=== PATIENT | male | born 1985 | race Caucasian/White ===

== ENCOUNTER 2020-05-29 17:39 | Emergency (ER) | payer MEDICAID, SELFPAY ==
[2020-05-29 17:40] VITALS: BP 144/79; PULSE 77; RESP 19; TEMP 36.8; O2SAT 100; BMI 25.8
--- NOTE | 2020-05-29 17:54 | XR_ITS ---
PROCEDURE: XR KNEE LT 3V CLINICAL INDICATION: fall, ?patella dislocation COMPARISON: KNEE3L KNEE-3 VIEWS-LT from 11/08/2012 FINDINGS: Examination for evaluation of the patellar dislocation is limited in absence of the sunrise view. No fracture or dislocation. No lytic or blastic change. There is normal mineralization. The joint spaces are well-preserved. No significant degenerative/arthritic changes. No erosive changes evident. Likely a small joint effusion present as a suprapatellar soft tissue increased density. Other findings:Patellae seen at an appropriate height. IMPRESSION: 1. No demonstrated acute fracture or substantial dislocation. If there is continued clinical concern, sunrise view of the patella is recommended. Dictated by: Wendi Aragon 05/29/2020 18:11 Electronically signed by Wendi Aragon in [place] 05/29/2020 18:11
--- NOTE | 2020-05-29 17:55 | HMH.EDGENADL ---
ED Disposition Clinical Impression: Patellar dislocation Qualifiers: Encounter type: initial encounter Laterality: left Qualified Code(s): S83.005A - Unspecified dislocation of left patella, initial encounter Left knee sprain Qualifiers: Encounter type: initial encounter Involved ligament of knee: other ligament Qualified Code(s): S83.8X2A - Sprain of other specified parts of left knee, initial encounter Disposition: Home, Self-Care Condition on Discharge: Good Instructions: DI for Knee Sprain, DI for Patellar Dislocation Additional Instructions: You have been evaluated for a patellar dislocation. Please wear immobilizer and use crutches. Follow-up with your primary care doctor and orthopedics in clinic. Return to the emergency department if you have any new or worsening pain, numbness, tingling in your foot. Referrals: PCP,No [Primary Care Provider] - Time of Disposition: 18:18 - Critical Care Critical Care Time: No Attestation: On 05/29/20, the high probability of a clinically significant, sudden or life threatening deterioration of the following system(s) required my full and direct attention, intervention and personal management. The time I documented below is in addition to time spent performing reported procedures but includes the following listed in this critical care notation. Medical Decision Making - Medical Records Medical records reviewed: Yes: I reviewed the patient's medical records. - Jose Inquiry Pt receiving controlled substance: No Vital Signs: 05/29/20 17:40 Temperature 98.3 F Temperature Source Oral Pulse Rate [Left Radial] 77 Respiratory Rate 19 Blood Pressure [Right Arm] 144/79 H Blood Pressure Mean [Right Arm] 100 Blood Pressure Source [Right Arm] Automatic Cuff Blood Pressure Position [Right Arm] Sitting 02 Sat by Pulse Oximetry 100 Oxygen Delivery Method Room Air Medical Decision Narrative: In summary this is a 34-year-old male presenting to the emergency department with left knee pain. Patient is overall well-appearing on arrival. Differential diagnoses include patellar dislocation, now relocated. Concern for occult fracture. Story sounds inconsistent with knee dislocation. Doubt neurovascular compromise. Plan to obtain plain film x-rays of the left knee and reassess. X-rays generally unremarkable. No signs of fracture. Patient placed into a knee immobilizer. Given crutches. Recommended to follow-up with orthopedics in clinic. Overall improved and stable for discharge. General Adult HPI - General Chief complaint: Extremity Injury, Lower Stated complaint: AO [id number] @1630 L knee injury Time Seen by Provider: 05/29/20 17:55 Description of Symptoms (Recalled from ER Triage Doc. by RN): Patient slipped on wet water. Thinks his kneecap went to the side. Went back. Pain with walking - History of Present Illness HPI narrative: 34-year-old male presenting to the emergency department with left knee pain. Patient was walking on a slippery floor when he lost his balance. Fell to the ground. His patella was on the lateral aspect of his leg. He was able to move it back to the center. Continues to have pain on the medial aspect of his knee. Pain is worse with motion. He is able to extend his leg. Does not think that his actual knee joint is dislocated. Currently does not have any numbness or tingling in his foot. He has had knee surgery in the past, years ago. He was able to walk into the ER. - Related Data Home Medications Medication Instructions Recorded Confirmed Buprenorphine HCl/Naloxone HCl 1 each SL DAILY 12/02/18 12/02/18 [Suboxone 8 mg-2 mg Sl Film] Previous Rx's Medication Instructions Recorded Pantoprazole Sodium [Protonix 40mg 40 mg PO BID 30 Days #60 tab 12/02/18 tablet] Allergies Allergy/AdvReac Type Severity Reaction Status Date / Time No Known Allergies Allergy Verified 12/02/18 14:08 [facility] History - Hepatit
[2020-05-29 18:56] VITALS: BP 144/79; PULSE 77; RESP 18; TEMP 36.8; O2SAT 100
== END 2020-05-29 18:58 | disposition home or self-care (01) ==
PROVIDERS: Emergency Provider Emergency Medicine
DX: S83.005A Unspecified dislocation of left patella, initial encounter (principal); W01.0XXA Fall on same level from slipping, tripping and stumbling without subsequent striking against object, initial encounter; Y92.019 Unspecified place in single-family (private) house as the place of occurrence of the external cause
CPT/HCPCS: 29505; 73562; 99283

== ENCOUNTER → 2021-04-20 12:52 | Outpatient (CLI) | payer MEDICAID, SELFPAY ==
--- NOTE | 2021-04-20 12:53 | CA_ITS ---
APPROVED REPORT EXAM: Comprehensive 2D, Doppler, and color-flow Echocardiogram Construction Manager: Alicia Romero RVT Ht: 5 ft 8 in Wt: 149lbs BSA: 1.80 BP: 140/72 mmHg Indications: MURMUR,HEP C ,HX IV DRUG USE IN THE PAST 2D Dimensions LVOT 2.01 cm (M/F) 1.5-2.5 LA Volume 25.40 mL LA Volume Index 14.11 mL/m2 (M/F) 16-34 M-Mode Dimensions RVDd 2.47 cm (0.9-2.6) LA Diam 3.73 cm (1.9-4.0) LVDd 5.36 cm (3.5-5.7) Ao Diam 3.03 cm (2.0-3.7) LVDs 3.54 cm (3.5-5.7) IVSd 0.61 cm (0.6-1.1) PWd 0.64 cm (0.6-1.1) EF (Teich) 62.30% FS 34.00% EDV (Teich) 138.90 mL TAPSE 2.32 (<1.7) ESV (Teich) 52.30 mL LV Diastology E Decel Time 300.00 (160-240 msec) E/A Ratio 1.9 MED E' 11.60 (< 7 cm/sec) E'/MED E' Ratio 5.84 (>14) LAT E' 17.60 (<10 cm/sec) E/LAT E' Ratio 3.85 (>14) Aortic Valve AO Peak GR. 4.20 mmHg Mitral Valve MV E Max Bassem. 68.00 (40-130 cm/s) MV A Velocity 36.00 (40-130 cm/s) E/A Ratio 1.87 MV Decel. Time 300.00 (160-240 ms) MV PHT 88.00 ms Pulmonary Valve PV Peak Velocity 70.00 (50-150 cm/s) Tricuspid Valve TR P. Velocity 145.00 cm/s RAP Estimate 10.00 mmHg RVSP 18.40 mmHg Left Ventricle Left atrium is normal size, left ventricle is normal size, there is no concentric left ventricular hypertrophy, visually estimated ejection fraction 55% with no regional wall motion abnormality, diastolic parameters are within normal range. Right Ventricle Right atrium and right ventricle are normal size and contractility. Aortic Valve Aortic valve is grossly normal, there is no aortic stenosis or aortic insufficiency. Mitral Valve Mitral valve grossly normal, there is trace mitral regurgitation. Tricuspid Valve Tricuspid grossly normal, there is trace tricuspid regurgitation, tricuspid regurgitation jet velocity is inadequate for calculation of the right ventricular systolic pressure. Pulmonic Valve Pulmonic valve is poorly visualized. Great Vessels Aortic root is normal size. Pericardium No significant pericardial effusion noted. Conclusion 1. Normal left ventricular size, preserved left ventricular systolic function, visually estimated ejection fraction 55% with no regional wall motion abnormality, diastolic parameters are within normal range. 2. Trace mitral and tricuspid regurgitation. 3. No significant pericardial effusion noted. Electronically signed by : Aaron Hall, 04/20/2021 21:54:54
== END ==
PROVIDERS: PCP Emergency Medicine; Visit Provider Emergency Medicine
DX: R01.1 Cardiac murmur, unspecified (principal)
CPT/HCPCS: 93306

== ENCOUNTER → 2021-07-23 17:10 | Outpatient (CLI) | payer MEDICAID, SELFPAY ==
[2021-07-23 17:50] LABS: Basophils # 0.1 K/mm3 (0-0.2); Basophils % 0.5 % (0.1-2.0); Eosinophils # 0.2 K/mm3 (0.0-0.4); Eosinophils % 2.4 % (0.1-12.0); Hematocrit 39.7 % (42.0-52.0); Lymphocytes # 3.6 K/mm3 (0.7-4.5); Lymphocytes % 36.7 % (10-50); Mean Corpuscular HGB Conc 32.7 g/dL (31.8-35.4); Mean Corpuscular Hemoglobin 31.3 pg (27.0-31.2); Mean Corpuscular Volume 95.7 fl (80-94); Mean Platelet Volume 8.2 fl (7.4-10.4); Monocytes # 0.4 K/mm3 (0.1-1.0); Monocytes % 3.8 % (1.7-9.3); Neutrophils # 5.6 K/mm3 (1.8-7.8); Neutrophils % 56.7 % (37.0-80.0); Platelet Count 293 K/mm3 (142-424); Red Blood Count 4.15 M/mm3 (4.60-6.20); Red Cell Distribution Width 13.4 % (11.5-17.5); White Blood Count 9.8 K/mm3 (4.8-10.8)
[2021-07-23 18:13] LABS: Alanine Aminotransferase 17 U/L (12-78); Albumin Level 4.6 g/dl (3.5-5.0); Albumin/Globulin Ratio 1.8 (1.1-1.8); Alkaline Phosphatase 41 U/L (38-126); Anion Gap 14.7 mEq/L (5-15); Aspartate Amino Transferase 39 U/L (17-59); Bilirubin,Total 0.5 mg/dl (0.2-1.3); Blood Urea Nitrogen 13 mg/dl (9-20); Calcium 9.3 mg/dl (8.4-10.2); Carbon Dioxide 30 mmol/L (22.0-30.0); Chloride 101 mmol/L (98-107); Chol/HDL Ratio 3.6 (1-3.5); Cholesterol 217 mg/dl (140-200); Estimated Glomerular Filt Rate 128 ml/min (>60); GFR (African American) 154 ML/MIN (>60); Globulin 2.6 g/dL (1.3-3.2); Glucose 84 mg/dl (74-100); HDL Cholesterol 60 mg/dl (40-60); Potassium 3.7 mmoL/L (3.5-5.1); Sodium 142 mmol/L (136-145); Total Protein,Serum 7.2 g/dl (6.3-8.2); Triglycerides 151 mg/dl (30-150); VLDL Cholesterol 30 mg/dL (0-40)
[2021-07-23 18:24] LABS: Direct LDL Cholesterol 131.27 mg/dL (100-129)
[2021-07-23 18:30] LABS: 25-OH Vitamin D, Total 46.3 ng/mL (30-100); Free T4 (Free Thyroxine) 0.91 ng/dl (0.78-2.19)
[2021-07-23 18:44] LABS: Thyroid Stimulating Hormone 1.51 uIU/mL (0.465-4.68)
== END ==
PROVIDERS: Visit Provider Emergency Medicine
DX: M79.2 Neuralgia and neuritis, unspecified (principal); E55.9 Vitamin D deficiency, unspecified; Z79.899 Other long term (current) drug therapy
CPT/HCPCS: 80053; 80061; 82306; 84439; 84443; 85025

== ENCOUNTER → 2021-07-24 17:16 | Outpatient (CLI) | payer MEDICAID, SELFPAY ==
[2021-07-24 19:48] LABS: Amphetamine/Metha Screen,Urine Negative ng/ml (<1000)
[2021-07-24 19:49] LABS: Barbiturates Screen,Urine Negative ng/ml (<200); Benzodiazepines Screen,Urine Negative ng/ml (<200)
[2021-07-24 19:50] LABS: Cannabinoid Screen,Urine Positive ng/ml (<50)
[2021-07-24 19:52] LABS: Cocaine Screen,Urine Negative ng/ml (<300)
[2021-07-24 19:53] LABS: Methadone Screen,Urine Negative ng/ml (<300)
[2021-07-24 19:54] LABS: Phencyclidine Screen,Urine Negative ng/ml (<25)
[2021-07-24 20:06] LABS: Opiate Screen,Urine Negative ng/ml (<300)
== END ==
PROVIDERS: Visit Provider Emergency Medicine
DX: M79.2 Neuralgia and neuritis, unspecified (principal)
CPT/HCPCS: 80305

== ENCOUNTER → 2021-10-21 17:06 | Outpatient (CLI) | payer MEDICAID, SELFPAY ==
[2021-10-21 18:47] LABS: Amphetamine/Metha Screen,Urine Negative ng/ml (<1000); Barbiturates Screen,Urine Negative ng/ml (<200)
[2021-10-21 18:48] LABS: Benzodiazepines Screen,Urine Negative ng/ml (<200)
[2021-10-21 18:49] LABS: Cannabinoid Screen,Urine Negative ng/ml (<50); Cocaine Screen,Urine Negative ng/ml (<300)
[2021-10-21 18:50] LABS: Methadone Screen,Urine Negative ng/ml (<300); Opiate Screen,Urine Negative ng/ml (<300)
[2021-10-21 18:51] LABS: Phencyclidine Screen,Urine Negative ng/ml (<25)
== END ==
PROVIDERS: Visit Provider Emergency Medicine
DX: M79.2 Neuralgia and neuritis, unspecified (principal)
CPT/HCPCS: 80305

== ENCOUNTER 2022-01-05 18:41 | Emergency (ER) | payer MEDICAID, SELFPAY ==
[2022-01-05 19:30] VITALS: BP 131/71; PULSE 72; RESP 18; TEMP 36.9; O2SAT 100; BMI 25.2
--- NOTE | 2022-01-05 19:52 | HMH.EDUTC ---
[facility] [place] Disposition Clinical Impression: Superficial foreign body of right ring finger with infection Disposition: Home, Self-Care Condition on Discharge: Good Instructions: DI for Cellulitis -- Adult Additional Instructions: Apply warm wet compresses to the affected sites three or four times per day for 15 minutes as tolerated. Keep the hand elevated as much a time as possible to reduce this swelling as much as possibe. Take the antibiotics as directed. Follow up with your regular doctor. GO TO THE ER FOR ANY WORSENING SYMPTOMS OR CONCERNS Prescriptions: Sulfamethoxazole/Trimethoprim [Bactrim DS tablet] 1 each PO BID 10 Days #20 tab Transmission Status: Received by [facility] Mupirocin [Bactroban 2% Ointment 22gm tube] 1 applicatio TP TID 7 Days #1 gm Transmission Status: Received by [facility] cephALEXin [cephALEXin 500mg capsule] 500 mg PO Q6H 10 Days #40 cap Transmission Status: Received by [facility] Referrals: Johnathon Moreno MD [Primary Care Provider] - Time of Disposition: 20:56 Medical Decision Making - Medical Records Medical records reviewed: No: I reviewed the patient's medical records. - Jose Inquiry Pt receiving controlled substance: No Vital Signs: 01/05/22 19:30 01/05/22 21:02 Temperature 98.4 F 98.4 F Temperature Source Oral Oral Pulse Rate 72 Pulse Rate [Apical] 72 Respiratory Rate 18 16 Blood Pressure 131/70 Blood Pressure [Right Arm] 131/71 Blood Pressure Mean [Right Arm] 91 Blood Pressure Source [Right Arm] Automatic Cuff Blood Pressure Position [Right Arm] Sitting 02 Sat by Pulse Oximetry 100 Oxygen Delivery Method Room Air Room Air Orders (Tests/Meds): ED MEDICATIONS Discontinued Medications Generic Name Dose Route Start Last Admin Trade Name Freq PRN Reason Stop Dose Admin Ceftriaxone Sodium 1 gm 01/05/22 20:52 01/05/22 21:01 Ceftriaxone 1gm Vial IM 01/05/22 20:53 1 gm ONCE ONE Administration Lidocaine HCl 0 ml 01/05/22 20:52 01/05/22 21:01 Lidocaine 1% 5ml Pf Vial IM 01/05/22 20:53 2 ml ONCE ONE Administration ORDERS Category Date Time Status Hand XR left minimum 3 views [XR hand LT min 3V] Stat Exams 01/05/22 19:57 Taken - Radiology Data #1 Image(s): Hand Image Reviewed: Yes I reviewed the patient's radiology image, Yes I have reviewed radiologist's interpretation Preliminary Findings: Normal/NAD PROCEDURE INFORMATION: Exam: XR Left Hand Exam date and time: 01/05/2022 7:57 PM Age: 36 years old Clinical indication: Injury or trauma; Other: Splinter in left finger; Puncture; Middle finger TECHNIQUE: Imaging protocol: XR Left hand. Views: 3 or more views. COMPARISON: No relevant prior studies available. FINDINGS: Bones/joints: Normal. Soft tissues: There is no evidence of a radiopaque foreign body. IMPRESSION: Unremarkable left hand. [facility] [place] HPI - General Stated complaint: left hand splinter Time Seen by Provider: 01/05/22 20:00 Mode of Arrival: Ambulatory Source of Information: Patient Limitations: No Limitations Description of Symptoms (Recalled from Triage Doc. by RN): Per pt, he has had a splinter in his left ring finger since (12/31/21) and has not been able to get it out. States that it is now swollen and painful. Denies fever. HEENT Symptoms (Recalled from RN notes): No Resp Symptoms (Recalled from RN notes): No Skin Symptoms (Recalled from RN notes): Yes MS Symptoms (Recalled from RN notes): No Functional Status (Recalled from RN notes): na - History of Present Illness Provider Complaint: He states that he was hunting about 1 week ago when he got a thorn in his left ring finger. Since then he has not been able to get it out and his finger is swollen and painful. He is not a diabetic. - Related Data Home Medications Medication Instructions Recorded
--- NOTE | 2022-01-05 19:57 | XR_ITS ---
PROCEDURE INFORMATION: Exam: XR Left Hand Exam date and time: 01/05/2022 7:57 PM Age: 36 years old Clinical indication: Injury or trauma; Other: Splinter in left finger; Puncture; Middle finger TECHNIQUE: Imaging protocol: XR Left hand. Views: 3 or more views. COMPARISON: No relevant prior studies available. FINDINGS: Bones/joints: Normal. Soft tissues: There is no evidence of a radiopaque foreign body. IMPRESSION: Unremarkable left hand.
[2022-01-05 21:02] VITALS: BP 131/70; PULSE 72; RESP 16; TEMP 36.9; O2SAT 98
== END 2022-01-05 21:14 | disposition home or self-care (01) ==
PROVIDERS: Emergency Provider Nurse Practitioner Family; PCP Emergency Medicine
DX: S60.455A Superficial foreign body of left ring finger, initial encounter (principal); W45.8XXA Other foreign body or object entering through skin, initial encounter
CPT/HCPCS: 10120; 73130; 96372; 99283; J0696

== ENCOUNTER 2022-01-30 15:22 | Emergency (ER) | payer MEDICAID, SELFPAY ==
[2022-01-30 15:23] VITALS: BP 135/82; PULSE 77; RESP 16; TEMP 36.6; O2SAT 98; BMI 25.7
--- NOTE | 2022-01-30 15:31 | XR_ITS ---
PROCEDURE INFORMATION: Exam: XR Left Hand Exam date and time: 01/30/2022 3:30 PM Age: 36 years old Clinical indication: Pain; Finger(s); Left; Additional info: Foreign body in finger TECHNIQUE: Imaging protocol: XR Left hand. Views: 1 or 2 views. COMPARISON: CR XR HAND LT MIN 3V 01/05/2022 7:56 PM FINDINGS: Bones/joints: Normal. No acute fracture or dislocation. Soft tissues: Prominent swelling mid to distal 4th digit, at the level of the middle phalanx. No radiopaque foreign body. IMPRESSION: Prominent swelling mid to distal 4th digit. No radiopaque foreign body.
--- NOTE | 2022-01-30 16:01 | HMH.EDGENADL ---
ED Disposition Clinical Impression: Abscess Disposition: Home, Self-Care Condition on Discharge: Fair Instructions: DI for Laceration Repair Prescriptions: Sulfamethoxazole/Trimethoprim [Bactrim DS tablet] 1 each PO BID 5 Days #10 tab Transmission Status: Pending to [facility] Referrals: Johnathon Moreno MD [Primary Care Provider] - - Critical Care Critical Care Time: No Attestation: On 01/30/22, the high probability of a clinically significant, sudden or life threatening deterioration of the following system(s) required my full and direct attention, intervention and personal management. The time I documented below is in addition to time spent performing reported procedures but includes the following listed in this critical care notation. Medical Decision Making - Medical Records Medical records reviewed: Yes: I reviewed the patient's medical records. - Jose Inquiry Pt receiving controlled substance: No Jose was queried for this patient: No Vital Signs: 01/30/22 15:23 Temperature 98 F Temperature Source Oral Pulse Rate [Radial] 77 Respiratory Rate 16 Blood Pressure [Right Arm] 135/82 Blood Pressure Mean [Right Arm] 99 Blood Pressure Position [Right Arm] Sitting 02 Sat by Pulse Oximetry 98 Oxygen Delivery Method Room Air Medical Decision Narrative: Patient is a 36-year-old with past medical history of IV drug use on Suboxone presenting to the ED for wound. Patient is awake, alert, not in acute distress. Patient is here medically stable, afebrile. Patient's physical exam is remarkable for right middle digit with moderate swelling, erythema, fluctuance noted concerning for an abscess. X-rays performed to look for any radiopaque foreign bodies. None are noted. Ultrasound was performed which shows an abscess that is superficial in nature. This is drained. Patient is written for Bactrim. Patient is given strict return precautions and follow-up instructions. General Adult HPI - General Chief complaint: Wound/Laceration Stated complaint: inf splinter ring finger left hand Time Seen by Provider: 01/30/22 16:01 Mode of Arrival: Ambulatory Limitations: No Limitations Description of Symptoms (Recalled from ER Triage Doc. by RN): to ed per pvt car with c/o splinter lt ring finger for approx 3 weeks. +swelling, redness noted. - History of Present Illness HPI narrative: Patient is a 36-year-old male with past medical history of IV drug use on Suboxone presenting to the ED for a splinter. Patient states approximately 2 weeks ago he had a splinter on has right middle digit that ended up getting swollen. This was removed at the urgent care. At that time patient was placed on Keflex. Patient states that despite being on the antibiotics he continues to have swelling of his finger. He does not have any numbness, weakness. He is still able to have range of motion without any significant pain. He has not had any fevers or chills. He has prior history of MRSA with associated infections. Patient has been compliant with his Keflex. - Related Data Home Medications Medication Instructions Recorded Confirmed buprenorphine 8 mg-naloxone 2 mg 1.5 tab SUBLINGUAL DAILY tab 02/27/21 01/18/22 sublingual tablet Previous Rx's Medication Instructions Recorded Mupirocin [Bactroban 2% Ointment 1 applicatio TP TID 7 Days #1 gm 01/05/22 22gm tube] gabapentin 600 mg tablet 600 mg PO TID #90 tab 01/18/22 quetiapine 25 mg tablet 25 mg PO HS #30 tab 01/18/22 Sulfamethoxazole/Trimethoprim 1 each PO BID 5 Days #10 tab 01/30/22 [Bactrim DS tablet] Allergies Allergy/AdvReac Type Severity Reaction Status Date / Time No Known Allergies Allergy Verified 01/18/22 14:52 [facility] History - Hepatitis A Screen Drug use history?: No High risk sexual behaviors?: No History of sexually transmitted infection?: No Currently employed?: No Childcare worker?: No Do you have indoor plumbing?:
[2022-01-30 16:42] VITALS: BP 142/74; PULSE 78; RESP 16; TEMP 36.6; O2SAT 98
== END 2022-01-30 16:45 | disposition home or self-care (01) ==
PROVIDERS: Emergency Provider Emergency Medicine; PCP Emergency Medicine
DX: L02.512 Cutaneous abscess of left hand (principal); F17.290 Nicotine dependence, other tobacco product, uncomplicated; Z79.899 Other long term (current) drug therapy; Z82.49 Family history of ischemic heart disease and other diseases of the circulatory system; Z83.438 Family history of other disorder of lipoprotein metabolism and other lipidemia; Z83.3 Family history of diabetes mellitus; Z80.9 Family history of malignant neoplasm, unspecified; Z81.8 Family history of other mental and behavioral disorders; Z81.1 Family history of alcohol abuse and dependence; Z86.14 Personal history of Methicillin resistant Staphylococcus aureus infection; Z87.898 Personal history of other specified conditions; X58.XXXA Exposure to other specified factors, initial encounter
CPT/HCPCS: 26010; 73120; 99213; G0463

== ENCOUNTER 2023-05-21 19:57 | Emergency (ER) | payer MEDICAID, SELFPAY ==
[2023-05-21 20:00] VITALS: BP 155/91; PULSE 73; RESP 18; TEMP 36.7; O2SAT 99; BMI 26.6
--- NOTE | 2023-05-21 20:14 | HMH.EDGENADL ---
Discharge Plan Disposition Patient Disposition: Home, Self-Care Condition: Good Prescriptions Prescriptions: New cephalexin 500 mg capsule 500 mg PO BID 5 Days Qty: 10 0RF No Action buprenorphine-naloxone 8-2 mg tablet, sublingual 1.5 tab SUBLINGUAL DAILY lidocaine 5 % adhesive patch,medicated 1 patch topical DAILY Qty: 30 0RF Rx Instructions: leave on most painful area for up to 12 hrs diclofenac sodium 1 % gel 2 g topical QID Qty: 100 0RF Rx Instructions: apply to single elbow, wrist or hand; for hand includes palm/fingers/back of hand gabapentin 800 mg tablet 800 mg PO TID Qty: 90 2RF quetiapine 50 mg tablet 50 mg PO DAILY Qty: 90 0RF Referrals Follow up/Referrals: Johnathon Moreno MD [Primary Care Provider] - See instructions Activity Restrictions/Add. Instructions Additional Instructions/Restrictions: At this time it was felt you are safe to be discharged home. Please take your medication as prescribed. If new or worsening symptoms please not hesitate to return for continued evaluation. Clinical Impressions Clinical Impression: Penetrating trauma, Foreign body Instructions Patient Instructions: DI for Skin Abscess Discharge ED Provider: Bryson Jay General Adult HPI General Chief complaint: Skin/Abscess/Foreign Body Stated complaint: AO 1750 left leg inj Time Seen by Provider: 05/21/23 20:06 History of Present Illness HPI narrative: Patient is a 37-year-old male with no pertinent past medical history who presents the emergency department for evaluation of traumatic injury sustained while weed eating. Patient was weed eating with resultant foreign body in his left medial calf which has been unsuccessfully removed after attempt at home. Tdap up-to-date. No other acute traumatic complaints at this time Related Data Home Medications Medication Instructions Recorded Confirmed buprenorphine 8 mg-naloxone 2 mg 1.5 tab sublingual DAILY 02/27/21 04/08/23 sublingual tablet Previous Rx's Medication Instructions Recorded quetiapine 50 mg tablet 50 mg PO DAILY #90 tabs 01/31/23 diclofenac sodium 1 % topical gel 2 g topical QID #100 grams 04/08/23 gabapentin 800 mg tablet 800 mg PO TID #90 tabs 04/08/23 lidocaine 5 % topical patch 1 patch topical DAILY #30 ea 04/08/23 cephalexin 500 mg capsule 500 mg PO BID 5 days #10 caps 05/21/23 Allergies Allergy/AdvReac Type Severity Reaction Status Date / Time No Known Allergies Allergy Verified 04/08/23 15:24 [facility] Disclaimer: The information contained in this section may have been updated after the patient was seen, as this information can be updated by other users. Social History Smoking Status: Current every day smoker tobacco type: smokeless tobacco alcohol intake: never substance use type: former substance user and opiates current occupational status: unemployed and other Travel in the last 8 weeks: None household members: other housing: house ROS Obtained: Yes Systems reviewed as appropriate & no additional complaints except as documented Physical Exam General General appearance: alert and in no apparent distress Head Head exam: atraumatic and normocephalic Eye Eye exam: Present PERRL and EOMI ENT ENT exam: Present mucous membranes moist Neck Neck exam: Present normal inspection Chest Chest inspection: Present normal inspection and symmetric chest wall rise Respiratory Respiratory exam: Absent respiratory distress Cardiovascular Cardiovascular exam: Present regular rate and normal rhythm Abdominal Exam Abdominal exam: Present soft; Absent tenderness Extremities Exam Extremities exam: Present other (Punctate area of trauma over the medial calf that is indurated and tender to touch.) Neurological Exam Neurological exam: Present alert and oriented X3 Psychiatric Psychiatric exam: Present normal affect
[2023-05-21 21:53] VITALS: BP 149/74; PULSE 72; RESP 16; TEMP 36.7; O2SAT 99
== END 2023-05-21 21:56 | disposition home or self-care (01) ==
PROVIDERS: Emergency Provider Emergency Medicine; PCP Emergency Medicine
DX: S81.822A Laceration with foreign body, left lower leg, initial encounter (principal); W29.3XXA Contact with powered garden and outdoor hand tools and machinery, initial encounter; F17.290 Nicotine dependence, other tobacco product, uncomplicated
CPT/HCPCS: 99283

== ENCOUNTER → 2023-06-30 12:44 | Outpatient (CLI) | payer MEDICAID, SELFPAY ==
[2023-06-30 13:38] LABS: Basophils % 0.3 % (0.1-2.0); Eosinophils # 0.3 K/mm3 (0.0-0.4); Eosinophils % 2.3 % (0.1-12.0); Hematocrit 43.6 % (42.0-52.0); Hemoglobin 14.7 g/dL (14.1-18.0); Lymphocytes # 2.6 K/mm3 (0.7-4.5); Lymphocytes % 23.9 % (10-50); Mean Corpuscular HGB Conc 33.6 g/dL (31.8-35.4); Mean Corpuscular Hemoglobin 30.8 pg (27.0-31.2); Mean Corpuscular Volume 91.7 fl (80-94); Mean Platelet Volume 7.8 fl (7.4-10.4); Monocytes # 0.4 K/mm3 (0.1-1.0); Monocytes % 3.6 % (1.7-9.3); Neutrophils # 7.6 K/mm3 (1.8-7.8); Platelet Count 268 K/mm3 (142-424); Red Blood Count 4.75 M/mm3 (4.60-6.20); Red Cell Distribution Width 12.5 % (11.5-17.5); White Blood Count 10.9 K/mm3 (4.8-10.8)
[2023-06-30 16:19] LABS: Chloride 103 mmol/L (98-107)
[2023-06-30 16:20] LABS: Potassium 4.1 mmoL/L (3.5-5.1); Sodium 141 mmol/L (136-145)
[2023-06-30 16:22] LABS: Alanine Aminotransferase 19 U/L (12-78); Anion Gap 14.1 mEq/L (5-15); Aspartate Amino Transferase 32 U/L (17-59); Blood Urea Nitrogen 14 mg/dl (9-20); Carbon Dioxide 28 mmol/L (22.0-30.0); Estimated Glomerular Filt Rate 109 ml/min (>60); GFR (African American) 132 ML/MIN (>60)
[2023-06-30 16:23] LABS: Albumin Level 4.5 g/dl (3.5-5.0); Albumin/Globulin Ratio 1.6 (1.1-1.8); Alkaline Phosphatase 48 U/L (38-126); Bilirubin,Total 0.8 mg/dl (0.2-1.3); Calcium 9.6 mg/dl (8.4-10.2); Chol/HDL Ratio 9.1 (1-3.5); Cholesterol 299 mg/dl (140-200); Globulin 2.9 g/dL (1.3-3.2); Glucose 63 mg/dl (74-100); HDL Cholesterol 33 mg/dl (40-60); Total Protein,Serum 7.4 g/dl (6.3-8.2); Triglycerides 217 mg/dl (30-150); VLDL Cholesterol 43 mg/dL (0-40)
[2023-06-30 16:39] LABS: Free T4 (Free Thyroxine) 1.24 ng/dl (0.78-2.19)
[2023-06-30 16:54] LABS: Thyroid Stimulating Hormone 2.92 uIU/mL (0.465-4.68)
[2023-06-30 18:35] LABS: 25-OH Vitamin D, Total 43.5 ng/mL (30-100)
[2023-07-01 13:44] LABS: Phencyclidine Screen,Urine Negative ng/ml (<25)
[2023-07-01 13:46] LABS: Benzodiazepines Screen,Urine Negative ng/ml (<200)
[2023-07-01 13:47] LABS: Amphetamine/Metha Screen,Urine Negative ng/ml (<1000)
[2023-07-01 13:48] LABS: Barbiturates Screen,Urine Negative ng/ml (<200); Methadone Screen,Urine Negative ng/ml (<300)
[2023-07-01 13:49] LABS: Cannabinoid Screen,Urine Negative ng/ml (<50)
[2023-07-01 13:50] LABS: Cocaine Screen,Urine Negative ng/ml (<300)
[2023-07-01 13:51] LABS: Opiate Screen,Urine Negative ng/ml (<300)
== END ==
PROVIDERS: Family Medicine; PCP Emergency Medicine; Visit Provider Emergency Medicine
DX: R53.83 Other fatigue (principal); M79.2 Neuralgia and neuritis, unspecified; E78.5 Hyperlipidemia, unspecified; R03.0 Elevated blood-pressure reading, without diagnosis of hypertension; E66.9 Obesity, unspecified; Z68.29 Body mass index [BMI] 29.0-29.9, adult; Z79.899 Other long term (current) drug therapy
CPT/HCPCS: 36415; 80053; 80061; 80305; 82306; 84439; 84443; 85025

== ENCOUNTER 2023-09-11 21:03 | Emergency (ER) | payer MEDICAID, SELFPAY ==
[2023-09-11 21:05] VITALS: BP 122/74; PULSE 90; RESP 20; TEMP 36.6; O2SAT 100; BMI 29.3
[2023-09-11 21:30] VITALS: BP 155/92; PULSE 89; O2SAT 99
--- NOTE | 2023-09-11 22:14 | PC.NURSE ---
in room talking with patient at this time.
[2023-09-11 22:32] LABS: Basophils # 0.1 K/mm3 (0-0.2); Basophils % 0.7 % (0.1-2.0); Eosinophils # 0.4 K/mm3 (0.0-0.4); Eosinophils % 4.6 % (0.1-12.0); Hematocrit 43.3 % (42.0-52.0); Hemoglobin 15.1 g/dL (14.1-18.0); Lymphocytes # 3.7 K/mm3 (0.7-4.5); Lymphocytes % 42.1 % (10-50); Mean Corpuscular Hemoglobin 31.9 pg (27.0-31.2); Mean Corpuscular Volume 91.3 fl (80-94); Mean Platelet Volume 8.6 fl (7.4-10.4); Monocytes # 0.4 K/mm3 (0.1-1.0); Monocytes % 4.9 % (1.7-9.3); Neutrophils # 4.1 K/mm3 (1.8-7.8); Neutrophils % 47.6 % (37.0-80.0); Platelet Count 275 K/mm3 (142-424); Red Blood Count 4.74 M/mm3 (4.60-6.20); Red Cell Distribution Width 12.9 % (11.5-17.5); White Blood Count 8.7 K/mm3 (4.8-10.8)
[2023-09-11 22:33] LABS: Chloride 100 mmol/L (98-107); Potassium 4.8 mmoL/L (3.5-5.1); Sodium 139 mmol/L (136-145)
[2023-09-11 22:35] LABS: Alanine Aminotransferase 28 U/L (12-78); Aspartate Amino Transferase 56 U/L (17-59); Blood Urea Nitrogen 13 mg/dl (9-20); Creatinine Clearance Estimated 160 mL/min (50-200); Estimated Glomerular Filt Rate 108 ml/min (>60); GFR (African American) 131 ML/MIN (>60)
[2023-09-11 22:36] LABS: Albumin Level 5.3 g/dl (3.5-5.0); Albumin/Globulin Ratio 1.5 (1.1-1.8); Alkaline Phosphatase 39 U/L (38-126); Anion Gap 13.8 mEq/L (5-15); Bilirubin,Total 0.6 mg/dl (0.2-1.3); Calcium 9.1 mg/dl (8.4-10.2); Carbon Dioxide 30 mmol/L (22.0-30.0); Globulin 3.5 g/dL (1.3-3.2); Glucose 90 mg/dl (74-100); Lipase 33 U/L (23-300); Total Protein,Serum 8.8 g/dl (6.3-8.2)
[2023-09-11 22:38] LABS: Lactic Acid 1.8 mmol/L (0.7-2.1)
--- NOTE | 2023-09-11 22:41 | CT_ITS ---
PROCEDURE INFORMATION: Exam: CT Abdomen And Pelvis With Contrast Exam date and time: 09/11/2023 11:54 PM Age: 38 years old Clinical indication: Abdominal pain; Additional info: Ruq pain and swelling TECHNIQUE: Imaging protocol: Computed tomography of the abdomen and pelvis with contrast. Radiation optimization: All CT scans at this facility use at least one of these dose optimization techniques: automated exposure control; mA and/or kV adjustment per patient size (includes targeted exams where dose is matched to clinical indication); or iterative reconstruction. Contrast material: ISOVUE; Contrast volume: 75 ml; Contrast route: IV; REPORTING DATA: Count of CT and Cardiac NM exams in prior 12 months: This patient has received 0 known CTs and 0 known cardiac nuclear medicine studies in the 12 months prior to the current study. [facility]02/[facility] 3:03 PM FINDINGS: Liver: Mild fatty liver infiltration. Liver measures 19 cm. Gallbladder and bile ducts: Normal. No calcified stones. No ductal dilation. Pancreas: Normal. No ductal dilation. Spleen: Normal. No splenomegaly. Adrenal glands: Normal. No mass. Kidneys and ureters: Normal. No hydronephrosis. Stomach and bowel: Unremarkable. No obstruction. No mucosal thickening. Appendix: No evidence of appendicitis. Intraperitoneal space: Unremarkable. No free air. No significant fluid collection. Vasculature: Unremarkable. No abdominal aortic aneurysm. Lymph nodes: Unremarkable. No enlarged lymph nodes. Urinary bladder: Unremarkable as visualized. Reproductive: Unremarkable as visualized. Bones/joints: Unremarkable. No acute fracture. Soft tissues: Unremarkable. IMPRESSION: 1. No acute findings. 2. Hepatomegaly with mild fatty liver infiltration.
--- NOTE | 2023-09-11 22:55 | PC.NURSE ---
patient back from CT
[2023-09-11 23:34] VITALS: BP 145/86; PULSE 74; RESP 18; TEMP 36.7; O2SAT 100
--- NOTE | 2023-09-11 23:37 | HMH.EDABDPAI ---
Discharge Plan Disposition Patient Disposition: Home, Self-Care Condition: Good Prescriptions Prescriptions: No Action buprenorphine-naloxone 8-2 mg tablet, sublingual 1.5 tab SUBLINGUAL DAILY diclofenac sodium 1 % gel 2 g topical QID Qty: 100 0RF Rx Instructions: apply to single elbow, wrist or hand; for hand includes palm/fingers/back of hand quetiapine 50 mg tablet See Rx Instructions .ROUTE .COMPLEX Qty: 90 0RF Dose Instruction: Take 1 tablet by mouth once daily Rx Instructions: Take 1 tablet by mouth once daily gabapentin 800 mg tablet 800 mg PO TID Qty: 90 2RF atorvastatin 20 mg tablet 20 mg PO DAILY Qty: 90 0RF Referrals Follow up/Referrals: Johnathon Moreno MD [Primary Care Provider] - See instructions Activity Restrictions/Add. Instructions Additional Instructions/Restrictions: You have been evaluated in the ED for your complaints. You may follow-up with your PCP in the next 3 to 5 days. Please return to ED for any new or worsening symptoms. Clinical Impressions Clinical Impression: Abdominal pain, RUQ, Hepatomegaly, Fatty liver disease, nonalcoholic Instructions Patient Instructions: DI for Acute Abdominal Pain Discharge ED Provider: Ronni Maldonado Abdominal Pain HPI General Chief Complaint: Abdominal Pain Stated Complaint: Pain in right side with swelling Time Seen by Provider: 09/11/23 22:06 Mode of Arrival: Ambulatory Source of Information: Patient Limitations: No Limitations Description of Symptoms (Recalled from ER Triage Doc. by RN): Pt presents with swelling in his upper right side that he noticed 2 days ago. Denies any N/V/D or fever. Rates the pain 4/10 non radiating. No other complaints at this time, no medical hx. History of Present Illness HPI narrative: 38-year-old male with past medical history significant for hepatitis C, PUD, HLD, presents today for evaluation concerning right upper quadrant abdominal pain present for the past 3 days. Patient has had associated nausea without emesis. Denies any fevers, chills, chest pain, shortness of breath, dysuria, hematuria, radiation of pain through the back. States that he does have his gallbladder and denies eating any recent spicy or fried foods. No aggravating or alleviating factors. No further complaints. Related Data Home Medications Medication Instructions Recorded Confirmed buprenorphine 8 mg-naloxone 2 mg 1.5 tab sublingual DAILY 02/27/21 09/11/23 sublingual tablet Previous Rx's Medication Instructions Recorded diclofenac sodium 1 % topical gel 2 g topical QID #100 grams 04/08/23 gabapentin 800 mg tablet 800 mg PO TID #90 tabs 07/01/23 quetiapine 50 mg tablet See Rx Instructions .Route 07/01/23 .COMPLEX #90 tabs atorvastatin 20 mg tablet 20 mg PO DAILY elevated 07/05/23 cholesterol #90 tabs Allergies Allergy/AdvReac Type Severity Reaction Status Date / Time No Known Allergies Allergy Verified 07/01/23 10:46 [facility] Disclaimer: The information contained in this section may have been updated after the patient was seen, as this information can be updated by other users. Medical History (Updated 09/11/23 @ 23:39 by Ronni Maldonado DO) HLD (hyperlipidemia) Social History Smoking Status: Current every day smoker tobacco type: smokeless tobacco alcohol intake: never substance use type: former substance user and opiates current occupational status: unemployed and other Travel in the last 8 weeks: None household members: other housing: house ROS Obtained: Yes All systems reviewed & no additional complaints except as documented Physical Exam General General appearance: alert and in no apparent distress Head Head exam: atraumatic and normocephalic Eye Eye exam: Present normal appearance, PERRL and EOMI ENT ENT exam: Present normal oropharynx and mucous membranes moist Neck Neck exam: P
== END 2023-09-11 23:43 | disposition home or self-care (01) ==
PROVIDERS: Emergency Provider Emergency Medicine; PCP Emergency Medicine
DX: R10.9 Unspecified abdominal pain (principal); R11.0 Nausea; E78.5 Hyperlipidemia, unspecified; Z87.891 Personal history of nicotine dependence
CPT/HCPCS: 74177; 80053; 83605; 83690; 85025; 96360; 96361; 96374; 96375; 99285; J2405; Q9967

== ENCOUNTER 2023-12-12 17:35 | Emergency (ER) | payer MEDICAID, SELFPAY ==
[2023-12-12 18:45] VITALS: BP 120/85; PULSE 85; RESP 19; TEMP 36.6; O2SAT 98; BMI 27.3
[2023-12-12 19:08] LABS: UTC Influenza A Antigen Negative (Negative); UTC Influenza B Antigen Negative (Negative)
--- NOTE | 2023-12-12 19:09 | ED_ITS ---
Discharge Plan Disposition Patient Disposition: Home, Self-Care Condition: Good Prescriptions Prescriptions: New ondansetron 4 mg tablet,disintegrating 4 mg PO Q8H PRN (Reason: nausea and vomiting) Qty: 10 0RF nystatin 100,000 unit/mL suspension 4 ml PO QID 10 Days Qty: 160 0RF Rx Instructions: swish and and retain in mouth as long as possible then spit No Action buprenorphine-naloxone 8-2 mg tablet, sublingual 1.5 tab SUBLINGUAL DAILY quetiapine [Seroquel] 100 mg tablet 100 mg PO HS Qty: 90 2RF atorvastatin 20 mg tablet See Rx Instructions .ROUTE .COMPLEX Qty: 90 0RF Dose Instruction: TAKE 1 TABLET BY MOUTH ONCE DAILY FOR ELEVATED CHOLESTEROL Rx Instructions: TAKE 1 TABLET BY MOUTH ONCE DAILY FOR ELEVATED CHOLESTEROL gabapentin 800 mg tablet 800 mg PO TID Qty: 90 1RF Referrals Follow up/Referrals: Jordan Borrero DO [Primary Care Provider] - See instructions Activity Restrictions/Add. Instructions Additional Instructions/Restrictions: *Monitor Temp, Over the counter Motrin or Tylenol as directed/as needed Tylenol every 4 hours and Motrin every 6 hours (as long as your family doctor has told you that you can take it) for fever or pain. and straight to ER if unable to lower temp less than 101.0 after medication given *Warm salt water gargles may help to soothe the throat *Throat Lozenges? *Warm fluids like tea with honey may help to soothe the throat? *Sleep elevated *Humidifier/Vaporizer Your throat swab was sent for culture. Those results are typically sent to your primary care. Be sure to follow up in 2-3 days with your family doctor/primary care physician if no improvement so they can review those result and treat if necessary. If you don?t have a primary care doctor, I recommend you get one but in the mean time, you will have to return to a walk in clinic Follow up IMMEDIATELY for new or worsening symptoms or no Noticeable im provement over the next 48-72 hours. 911 for difficulty breathing or swallowing You were tested for today for Upper Respiratory Panel with COVID19 your test result should be back in the next 24 hours, you may check your results on the [facility] My Health Portal if your COVID is positive? you must quarantine for 5 days Clinical Impressions Clinical Impression: Viral syndrome, Candidiasis of mouth Instructions Patient Instructions: Thrush-Adult, DI for Viral Syndrome, Nausea and Vomiting- Adult Discharge ED Provider: Lluvia Akbar [facility] HPI General Stated complaint: fever chills n\v diarrhea Mode of Arrival: Ambulatory Source of Information: Patient and Spouse Limitations: No Limitations Time Seen by Provider: 12/12/23 19:13 Description of Symptoms (Recalled from Triage Doc. by RN): PATIENT C/O FEVER, CHILLS, COUGH, NAUSEA, VOMITING, AND NO APPETITE X 2 DAYS HEENT Symptoms (Recalled from RN notes): No Resp Symptoms (Recalled from RN notes): Yes Skin Symptoms (Recalled from RN notes): No MS Symptoms (Recalled from RN notes): No Functional Status (Recalled from RN notes): WNL History of Present Illness Provider Complaint: Patient states that he hasnt felt well for the last couple of days States that he has been having fever, chills, N/V/D achy all over and no appetite States that he has still been drinking ok so today when he was still feeling bad he came in to get checked Related Data Home Medications Medication Instructions Recorded Confirmed buprenorphine 8 mg-naloxone 2 mg 1.5 tab sublingual DAILY 02/27/21 12/12/23 sublingual tablet Previous Rx's Medication Instructions Recorded atorvastatin 20 mg tablet See Rx Instructions .Route 09/21/23 .COMPLEX #90 tabs quetiapine 100 mg tablet (Seroquel) 100 mg PO HS #90 tabs 09/21/23 gabapentin 800 mg tablet 800 mg PO TID #90 tabs 10/28/23 nystatin 100,000 unit/mL oral 4 ml PO QID 10 days #160 mL 12/12/23 suspension ondansetron 4 mg disintegrating 4 mg PO Q8H PRN nausea and 12/12/23 tablet vomiting #10 tabs Allergies Allergy/AdvReac Type Severity Reaction Status Date / Time No Known Allergies Allergy Verified 09/21/23 13:21 Worker's Comp Is this a Worker's Comp case?: No [facility] Disclaimer: The information contained in this section may have been updated after the patient was seen, as this information can be updated by other users. Medical History (Updated 12/12/23 @ 19:37 by Lluvia Akbar APRN) HLD (hyperlipidemia) Social History Smoking Status: Current every day smoker tobacco type: smokeless tobacco alcohol intake: never substance use type: former substance user and opiates current occupational status: unemployed and other Travel in the last 8 weeks: None household members: other housing: house ROS Obtained: Yes All systems reviewed & no additional complaints except as documented and Yes Systems reviewed as appropriate & no additional complaints except as documented Constitutional Constitutional: Reports system reviewed and no additional complaints, except as documented, Reports as per HPI, Reports body ache, Reports chills, Reports fever(s) and Reports headache(s) ENT Ears, Nose, Mouth, and Throat: Reports system reviewed and no additional complaints, except as documented, Reports as per HPI, Reports headache(s) and Reports sore throat Cardiovascular Cardiovascular: Reports system reviewed and no additional complaints, except as documented, Reports as per HPI and Denies chest pain Respiratory Respiratory: Reports system reviewed and no additional complaints, except as documented, Reports as per HPI and Denies shortness of breath Gastrointestinal Gastrointestingal: Reports system reviewed and no additional complaints, except as documented, as per HPI, diarrhea, nausea and vomiting Neurologic Neurologic: Reports headache(s) Physical Exam General General appearance: alert and in no apparent distress ENT ENT exam: Present mucous membranes moist Expanded ENT Exam Nose exam: Absent sinus tenderness Throat exam: Present tonsillar erythema (white patchy like areas noted on throat appears like yeast) Respiratory Respiratory exam: Present normal lung sounds bilaterally; Absent respiratory distress or wheezes Cardiovascular Cardiovascular exam: Present regular rate, normal rhythm and normal heart sounds Abdominal Exam Abdominal exam: Present soft and normal bowel sounds; Absent distention or tenderness Neurological Exam Neurological exam: Present alert, oriented X3 and normal gait Medical Decision Making Jose Inquiry Pt receiving controlled substance: No Jose was queried for this patient: No Vital Signs: 12/12/23 18:45 Temperature 97.8 F Temperature Source Oral Pulse Rate [Right Brachial] 85 Respiratory Rate 19 Blood Pressure [Right Arm] 120/85 Blood Pressure Mean [Right Arm] 96 Blood Pressure Source [Right Arm] Automatic Cuff Blood Pressure Position [Right Arm] Sitting 02 Sat by Pulse Oximetry 98 Oxygen Delivery Method Room Air Lab Data Lab results reviewed: Yes I reviewed the patient's lab results. Lab Results 12/12/23 18:47: Influenza Type A Ag Negative, Influenza Type B Ag Negative
[2023-12-12 19:35] LABS: UTC Strep Screen (Rapid) Negative (Negative)
[2023-12-12 19:40] VITALS: BP 120/85; PULSE 85; RESP 19; TEMP 36.6; O2SAT 98
[2023-12-12 20:21] LABS: Adenovirus,PCR Not Detected (NotDetected); Coronavirus 19, PCR Not Detected (NotDetected); Coronavirus 229E Not Detected (NotDetected); Coronavirus NL63 Not Detected (NotDetected); Coronavirus OC43 Not Detected (NotDetected); Coronovirus HKU1,PCR Not Detected (NotDetected); Human Metapneumovirus Not Detected (NotDetected); Influenza A, PCR Not Detected (NotDetected); Influenza AH1, 2009 Not Detected (NotDetected); Influenza AH1, PCR Not Detected (NotDetected); Influenza B, PCR Not Detected (NotDetected); Parainfluenza 1, PCR Not Detected (NotDetected); Parainfluenza 2, PCR Not Detected (NotDetected); Parainfluenza 3, PCR Not Detected (NotDetected); Parainfluenza 4, PCR Not Detected (NotDetected); Respiratory Syncytial Virus Not Detected (NotDetected); Rhinovirus/Enterovirus Not Detected (NotDetected)
[2023-12-13 08:14] LABS: Influenza AH3,PCR Detected (NotDetected)
--- NOTE | 2023-12-13 12:02 | PC.NURSE ---
pt called for swab results.
== END 2023-12-12 19:44 | disposition home or self-care (01) ==
PROVIDERS: Emergency Provider Nurse Practitioner; PCP Internal Medicine
DX: J10.1 Influenza due to other identified influenza virus with other respiratory manifestations (principal); R11.2 Nausea with vomiting, unspecified; R50.9 Fever, unspecified; B37.0 Candidal stomatitis; M79.18 Myalgia, other site; E78.5 Hyperlipidemia, unspecified; F17.210 Nicotine dependence, cigarettes, uncomplicated
CPT/HCPCS: 87581; 87632; 87635; 87798; 87804; 87880; 99212; 99214; G0463

== ENCOUNTER 2023-12-18 18:54 | Inpatient (IN) | payer MEDICAID, SELFPAY ==
[2023-12-18] VITALS (8 sets, daily range): BP systolic 109–150; BP diastolic 68–96; PULSE 91–108; RESP 17–22; TEMP 36.9–37.1; O2SAT 88–94; BMI 29.8; BMI 30.1
--- NOTE | 2023-12-18 19:01 | ED_ITS ---
I was consulted by the ADRIANNA, and we discussed the complexity of the problems being addressed. I approved the treatment and management plan for this patient's care in the emergency department, thus performing a substantive portion of the medical decision making. Olive Elise MD, MILKA, FACE Discharge Plan Disposition Patient Disposition: Admitted Condition: Fair Discharge ED Provider: Olive Elise General Adult HPI General Chief complaint: Shortness of Breath/Dyspnea Stated complaint: Cough,fever,sore throat Time Seen by Provider: 12/18/23 19:01 History of Present Illness HPI narrative: She was diagnosed proximately 1 week ago with influenza A. He has continued to feel poorly with malaise cough shortness of breath. Patient is not short of breath even at rest. Related Data Home Medications Medication Instructions Recorded Confirmed buprenorphine 8 mg-naloxone 2 mg 1.5 tab sublingual DAILY 02/27/21 12/18/23 sublingual tablet Previous Rx's Medication Instructions Recorded atorvastatin 20 mg tablet See Rx Instructions .Route 09/21/23 .COMPLEX #90 tabs quetiapine 100 mg tablet (Seroquel) 100 mg PO HS #90 tabs 09/21/23 gabapentin 800 mg tablet 800 mg PO TID #90 tabs 10/28/23 Allergies Allergy/AdvReac Type Severity Reaction Status Date / Time No Known Allergies Allergy Verified 09/21/23 13:21 [facility] Disclaimer: The information contained in this section may have been updated after the patient was seen, as this information can be updated by other users. Medical History (Updated 12/18/23 @ 19:30 by Edilma Ghosh RN) Hepatitis C HLD (hyperlipidemia) Social History Smoking Status: Former smoker tobacco type: smokeless tobacco alcohol intake: never substance use type: former substance user and opiates current occupational status: unemployed and other Travel in the last 8 weeks: None household members: other housing: house ROS Obtained: Yes Systems reviewed as appropriate & no additional complaints ex cept as documented Physical Exam Narrative Physical exam: Patient is a well-nourished well-developed 38-year-old gentleman otherwise in no acute distress General General appearance: alert and in no apparent distress Head Head exam: atraumatic and normal inspection Eye Eye exam: Present normal appearance, PERRL and EOMI ENT ENT exam: Present normal exam, normal oropharynx and mucous membranes moist Neck Neck exam: Present normal inspection, full ROM and trachea midline; Absent lymphadenopathy Chest Chest inspection: Present normal inspection and symmetric chest wall rise Respiratory Respiratory exam: Present other (Auscultation of breath sounds reveals faint coarse rhonchi and slight end expiratory wheezes in all 4 stein but no tachypnea or accessory muscle use) Cardiovascular Cardiovascular exam: Present normal rhythm, tachycardia (Sinus), normal heart sounds, +S1 and +S2 Abdominal Exam Abdominal exam: Present soft and normal bowel sounds; Absent tenderness, guarding or rebound Extremities Exam Extremities exam: Present normal inspection and full ROM Neurological Exam Neurological exam: Present alert, oriented X3 and CN II-XII intact Psychiatric Psychiatric exam: Present normal affect and normal mood Skin Skin exam: Present warm, dry and normal color Medical Decision Making Medical Records Medical records reviewed: Yes I reviewed the patient's medical records. Jose Inquiry Pt receiving controlled substance: No Vital Signs: 12/18/23 19:24 12/18/23 19:18 12/18/23 19:30 Temperature 98.7 F Temperature Source Oral Pulse Rate 101 H 101 H Pulse Rate [Right Brachial] 104 H Respiratory Rate 20 Blood Pressure 121/73 109/68 L Blood Pressure [Right Arm] 121/73 Blood Pressure Mean 89 80 Blood Pressure Mean [Right Arm] 89 Blood Pressure Source Blood Pressure Source [Right Arm] Automatic Cuff Blood Pressure Position Blood Pressure Position [Right Arm] Sitting 02 Sat by Pulse Oximetry 88 L 92 L Oxygen Delivery Method Room Air Oxygen Flow Rate (LPM) 3 3 12/18/23 20:00 12/18/23 20:30 12/18/23 20:57 Temperature 98.4 F Temperature Source Oral Pulse Rate 108 H 92 H 91 H Pulse Rate [Right Brachial] Respiratory Rate 17 18 Blood Pressure 124/72 140/94 H 150/93 H Blood Pressure [Right Arm] Blood Pressure Mean 89 Blood Pressure Mean [Right Arm] Blood Pressure Source Automatic Cuff Automatic Cuff Blood Pressure Source [Right Arm] Blood Pressure Position Sitting Sitting Blood Pressure Position [Right Arm] 02 Sat by Pulse Oximetry 93 L 92 L Oxygen Delivery Method Nasal Cannula Nasal Cannula Oxygen Flow Rate (LPM) 3 3 3 Lab Data Lab Results 12/18/23 18:59: SARS-CoV-2 (PCR) Not detected, Influenza A Untype (PCR) Not detected, Influenza Type B (PCR) Not detected, Group A Strep Rapid Negative 12/18/23 19:07: VBG pH 7.44 H, VBG pCO2 47.5, VBG pO2 41.7 H, VBG HCO3 31.2 H, VBG Total CO2 32.7 H, VBG O2 Saturation 77.9 H, VBG Base Excess 7.0 H 12/18/23 19:20: WBC 19.5 H, RBC 4.43 L, Hgb 14.1, Hct 39.6 L, MCV 89.3, MCH 31.7 H, MCHC 35.5 H, RDW 12.7, Plt Count 536 H, MPV 8.1, Neut % (Auto) 85.7 H, Lymph % (Auto) 9.5 L, Moffat % (Auto) 3.6, Eos % (Auto) 1.0, Baso % (Auto) 0.3, Neut # (Auto) 16.8 H, Lymph # (Auto) 1.8, Moffat # (Auto) 0.7, Eos # (Auto) 0.2, Baso # (Auto) 0.1, Total Counted 100, Neutrophils % (Manual) 82 H, Lymphocytes % (Manual) 14, Monocytes % (Manual) 4, Platelet Estimate Moderate increase, RBC Morphology Normal, Sodium 135 L, Potassium 3.0 L, Chloride 95 L, Carbon Dioxide 37 H, Anion Gap 6.0, BUN 8 L, Creatinine 0.70, Estimated Creat Clear 185, Estimated GFR 126, Est GFR ( Amer) 153, Glucose 142 H, Calcium 8.6, Procalcitonin 0.114 12/18/23 19:45: Lactate 1.3 12/18/23 19:20 12/18/23 19:20 Orders (Tests/Meds): ED MEDICATIONS Generic Name Dose Route Start Last Admin Trade Name Freq PRN Reason Stop Dose Admin Lactated Ringer's 2,120 mls @ 1,060 mls/hr 12/18/23 19:33 12/18/23 19:42 Lactated Ringer's 1000 Ml Bag 30 ml/kg infuse over 2 hr (2120 ml) 12/18/23 21:32 1,060 mls/hr IV Administration .Q2H ONE Piperacillin Sod/Tazobactam 50 mls @ 100 mls/hr 12/18/23 20:00 12/18/23 20:21 Sod 3.375 gm/ Sodium Chloride IV 12/28/23 19:59 100 mls/hr Q6H QASIM Administration Azithromycin 500 mg/ Sodium 250 mls @ 250 mls/hr 12/18/23 20:00 12/18/23 20:38 Chloride IV 12/28/23 19:59 250 mls/hr Q24H QASIM Administration Vancomycin HCl 2,000 mg/ 500 mls @ 125 mls/hr 12/18/23 20:00 Sodium Chloride IV 12/18/23 23:59 ONCE ONE Miscellaneous 1 each 12/18/23 20:00 12/18/23 19:57 Vancomycin Consult Request NOTAPPLIC 01/17/24 19:59 1 each CONSULT PHARMACY QASIM Administration Discontinued Medications Generic Name Dose Route Start Last Admin Trade Name Freq PRN Reason Stop Dose Admin Albuterol/Ipratropium 3 ml 12/18/23 19:26 12/18/23 19:50 Ipratropium/Albuterol 3 Ml Neb IH 12/18/23 19:27 3 ml ONCE ONE Administration Iopamidol 100 ml 12/18/23 20:08 12/18/23 20:10 Iopamidol-370 (76%);100ml Bottle IV 12/18/23 20:09 100 ml ONCE ONE Administration Sodium Chloride 10 ml 12/18/23 20:08 12/18/23 20:09 Sodium Chloride 0.9% 10ml Syr (Rad Only) IV 12/18/23 20:09 10 ml ONCE ONE Administration Sodium Chloride 50 ml 12/18/23 20:08 12/18/23 20:09 0.9 % Sodium Chloride 50 Ml Vial IV 12/18/23 20:09 50 ml ONCE ONE Administration ORDERS Category Date Time Status CTA Chest [CT angio chest PE protocol] Stat Cat Scan 12/18/23 19:55 Completed Chest XR -- portable [XR chest portable] Stat Exams 12/18/23 19:07 Completed BMP [Basic Metabolic Panel] Stat Lab 12/18/23 19:20 Completed Basic Metabolic Panel AMLAB Lab 12/19/23 06:00 Ordered CBC [Complete Blood Count Auto Diff] Stat Lab 12/18/23 19:20 Completed Complete Blood Count Auto Diff AMLAB Lab 12/19/23 06:00 Ordered Lactic Acid Stat Lab 12/18/23 19:45 Completed Procalcitonin Stat Lab 12/18/23 19:20 Completed Rapid PCR Covid and Flu A/B Stat Lab 12/18/23 18:59 Completed Rapid Strep Scrn Group A [Strep Scrn Group A (Rapid)] Lab 12/18/23 18:59 Completed Stat Blood Culture Stat Micro 12/18/23 19:45 Received Strep Screen Confirmation Stat Micro 12/18/23 18:59 Received VBG [Venous Blood Gas] Stat RT 12/18/23 19:07 Completed Tissue Perfus/Sepsis Re-Eval Sepsis Re-Evaluation Performed: Yes Date Performed: 12/18/23 Time Performed: 20:30 Medical Decision Narrative: In summary patient is a 38-year-old male who presents to the emergency department for evaluation of shortness of breath, subjective fever, and cough. Patient is hemodynamically stable tachycardic but afebrile upon arrival upon arrival. He is hypoxic on arrival down to 88% on room air that did correct to above 94% with supplemental O2 patient is not normally on oxygen. He was recently diagnosed with influenza A approximately 1 week ago. Patient reports his last cigarette was prior to his flu diagnosis. Patient now reports that he is short of breath even at rest. Physical exam reveals him to look unwell however he is normotensive tachycardic and afebrile. Auscultation of breath sounds reveals faint rhonchi and faint end expiratory wheezes. Differential diagnosis includes viral versus bacterial respiratory tract infection versus pneumonia versus COPD exacerbation etc. Initial workup will be conducted with hematologic labs radiographic imaging. Initial interventions include sepsis bolus, supplemental O2, DuoNeb. Initial workup reviewed by me shows an elevated white count with a left shift, my informal interpretation of the plain from chest x-ray shows diffuse groundglass opacities, and informal interpretation of the CTA of the chest reveals no thrombus however again diffuse groundglass opacities. Given this discussed patient management with [facility] medicine who agreed to accept the patient for admission. Critical Care Critical Care Time Critical Care Time: Yes Attestation: On 12/18/23, the high probability of a clinically significant, sudden or life threatening deterioration of the following system(s) required my full and direct attention, intervention and personal management. The time I documented below is in addition to time spent performing reported procedures but includes the following listed in this critical care notation. Total Time Total Critical Care Time: 65
--- NOTE | 2023-12-18 19:07 | XR_ITS ---
PROCEDURE INFORMATION: Exam: XR Chest Exam date and time: 12/18/2023 7:08 PM Age: 38 years old Clinical indication: Shortness of breath; Additional info: Acute hypoxemic respiratory failure TECHNIQUE: Imaging protocol: Radiologic exam of the chest. Views: 1 view. Total images: 1 COMPARISON: CT ABDOMEN PELVIS W CON 09/11/2023 11:54 PM FINDINGS: Lungs: Coarsened interstitial markings bilateral lung bases, greater on the left, concerning for acute nonspecific pneumonitis. No airspace consolidation or vascular congestion. Pleural spaces: Unremarkable. No pleural effusion. No pneumothorax. Heart/Mediastinum: Unremarkable. No cardiomegaly. No mediastinal widening or hilar enlargement. Bones/joints: Partially visualized mild degenerative changes mid lower thoracic spine. IMPRESSION: 1. Coarsened interstitial markings left greater than right lung base concerning for acute pneumonitis. 2. No airspace consolidation or vascular congestion.
[2023-12-18 19:09] LABS: Coronavirus 19, PCR Not Detected (NotDetected); Influenza A, PCR Not Detected (NotDetected); Influenza B, PCR Not Detected (NotDetected)
[2023-12-18 19:16] LABS: Strep Scrn Group A (Rapid) Negative (Negative)
[2023-12-18 19:27] LABS: Basophils # 0.1 K/mm3 (0-0.2); Basophils % 0.3 % (0.1-2.0); Eosinophils # 0.2 K/mm3 (0.0-0.4); Hematocrit 39.6 % (42.0-52.0); Hemoglobin 14.1 g/dL (14.1-18.0); Lymphocytes # 1.8 K/mm3 (0.7-4.5); Lymphocytes % 9.5 % (10-50); Mean Corpuscular HGB Conc 35.5 g/dL (31.8-35.4); Mean Corpuscular Hemoglobin 31.7 pg (27.0-31.2); Mean Corpuscular Volume 89.3 fl (80-94); Mean Platelet Volume 8.1 fl (7.4-10.4); Monocytes # 0.7 K/mm3 (0.1-1.0); Monocytes % 3.6 % (1.7-9.3); Neutrophils # 16.8 K/mm3 (1.8-7.8); Neutrophils % 85.7 % (37.0-80.0); Platelet Count 536 K/mm3 (142-424); Red Blood Count 4.43 M/mm3 (4.60-6.20); Red Cell Distribution Width 12.7 % (11.5-17.5); White Blood Count 19.5 K/mm3 (4.8-10.8)
[2023-12-18 19:29] LABS: MANUAL DIFFERENTIAL MANUAL DIFFERENTIAL (MANUAL DIFF)
[2023-12-18 19:31] LABS: Chloride 95 mmol/L (98-107); Sodium 135 mmol/L (136-145)
[2023-12-18 19:33] LABS: VBG HCO3 31.2 mmol/L (23-30); VBG Oxygen Saturation 77.9 % (50-70); VBG PCO2 47.5 mmol/L (35-51); VBG PH 7.44 mmol/L (7.31-7.41); VBG PO2 41.7 mmol/L (28-40); VBG Total CO2 32.7 mmol/L (23-27)
[2023-12-18 19:34] LABS: Blood Urea Nitrogen 8 mg/dl (9-20); Calcium 8.6 mg/dl (8.4-10.2); Carbon Dioxide 37 mmol/L (22.0-30.0); Creatinine Clearance Estimated 185 mL/min (50-200); Estimated Glomerular Filt Rate 126 ml/min (>60); GFR (African American) 153 ML/MIN (>60); Glucose 142 mg/dl (74-100)
[2023-12-18] MEDS: LACTATED RINGERS 1000ML 2,120 ML 1060 ML IV (19:42)
[2023-12-18] MEDS: IPRATROPIUM/ALBUTEROL 3 ML NEB IH (19:50)
--- NOTE | 2023-12-18 19:55 | CT_ITS ---
PROCEDURE INFORMATION: Exam: CTA Chest With Contrast Exam date and time: 12/18/2023 8:06 PM Age: 38 years old Clinical indication: Shortness of breath; Additional info: Acute hypoxemic respiratory failure, severe sepsis TECHNIQUE: Imaging protocol: Computed tomographic angiography of the chest with contrast. Exam focused on the arteries. 3D rendering (Not supervised by radiologist): MIP and/or 3D reconstructed images were created by the technologist. Total images: 465 Radiation optimization: All CT scans at this facility use at least one of these dose optimization techniques: automated exposure control; mA and/or kV adjustment per patient size (includes targeted exams where dose is matched to clinical indication); or iterative reconstruction. Contrast material: ISO 370; Contrast volume: 75 ml; Contrast route: INTRAVENOUS (IV); COMPARISON: CR XR CHEST PORTABLE 12/18/2023 7:08 PM FINDINGS: Pulmonary arteries: Adequate contrast opacification the pulmonary arteries. Main pulmonary artery is normal in caliber with cardiac pulsation artifact. Considerable limitations imposed by significant respiratory motion artifact. This renders overall evaluation nondiagnostic for complete exclusion of pulmonary emboli. No convincing evidence for main or proximal segmental emboli. Aorta: Cardiac pulsation artifact partially obscuring the wall of the ascending aorta. No aneurysm or dissection. Lungs: Trachea and main bronchi are patent. Diffuse bilateral ground-glass and interstitial infiltrate throughout both lungs, corresponding with recent chest radiograph. Interstitial infiltrate demonstrates a diffuse reticulonodular pattern. No confluent airspace consolidation. No discrete pulmonary mass. Pleural spaces: Unremarkable. No pneumothorax. No pleural effusion. Heart: Normal heart size. No pericardial effusion. Coronary arteries: No significant coronary artery calcifications. Lymph nodes: Mildly enlarged subcarinal lymph nodes up to 13 mm in short axis. Borderline enlarged right paratracheal and prevascular lymph nodes up to 10 mm in short axis. Calcified subcarinal and left hilar lymph nodes compatible with remote granulomatous disease. Diaphragm: Tiny hiatal hernia. Pancreas: Mild pancreatic atrophy. Intraperitoneal space: No acute process in the upper abdomen. Bones/joints: Moderate degenerative changes mid lower thoracic spine. Multilevel mild anterior wedging of consecutive midthoracic vertebral bodies either remote or developmental. Consider developmental spondylopathy/Scheuermann's disease. Mild broad-based thoracic levocurvature. Soft tissues: Unremarkable. IMPRESSION: 1. No convincing evidence for main or proximal segmental emboli. 2. Considerable limitations imposed by significant respiratory motion artifact. 3. Diffuse bilateral ground-glass and reticulonodular interstitial infiltrates likely acute nonspecific pneumonitis or viral pneumonia. Findings correspond well with recent chest radiograph. 4. Remote calcified granulomatous disease. 5. Mild mediastinal lymphadenopathy. Differential is broad including reactive/postinflammatory, granulomatous, neoplastic, and metastatic causes. Recommend follow-up routine chest CT in 3 months. 6. Additional chronic and incidental findings.
[2023-12-18] MEDS: VANCOMYCIN CONSULT REQUEST 1 EACH NOTAPPLIC (19:57)
[2023-12-18 20:09] LABS: Lymphocytes % 14 % (10-50); Monocytes % 4 % (2-9); Neutrophils % 82 % (42-76); Platelet Estimate Moderate Increase; RBC Morphology Normal; Total Cells Counted 100
[2023-12-18] MEDS: SODIUM CHLORIDE 0.9% 10ML SYR (RAD ONLY) 10 ML IV (20:09)
[2023-12-18] MEDS: 0.9 % SODIUM CHLORIDE 50 ML VIAL IV (20:09)
[2023-12-18 20:10] LABS: Lactic Acid 1.3 mmol/L (0.7-2.1)
[2023-12-18] MEDS: IOPAMIDOL-370 (76%);100ML BOTTLE 100 ML IV (20:10)
--- NOTE | 2023-12-18 20:17 | PC.NURSE ---
PA on phone with hospitalist
--- NOTE | 2023-12-18 20:17 | PC.NURSE ---
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
[2023-12-18 20:18] LABS: Procalcitonin 0.114 ng/mL (0.0-2.0)
[2023-12-18] MEDS: PIPERCILLIN/TAZO 3.375 GM in 0.9 % SODIUM CHLORIDE 50 ML IV (20:21)
--- NOTE | 2023-12-18 20:25 | PC.NURSE ---
Acute admission to 204 with dx of sepsis pneumonia to hospitalist.
[2023-12-18] MEDS: AZITHROMYCIN 500 MG in 0.9 % SODIUM CHLORIDE 250 ML 250 MG IV (20:38)
--- NOTE | 2023-12-18 20:53 | PC.NURSE ---
Report called to ROSS Beck on [facility]
--- NOTE | 2023-12-18 21:20 | P.HP_ITS ---
Attending attestation Patient was seen and evaluated at the bedside myself, agree with ADRIANNA note. History of Present Illness *Admission Date: 12/18/23 *Reason for visit:: sepsis *History of present illness: 38 year old male presented to [facility] ED for c/o SOB, cough, and fever. PMHX of HLD, opioid use disorder, Hep C, and tobacco use. Pt was dx 1 week prior with influenza A. The pt's ED workup reveals elevated HR, increased RR, o2 use, leukocytosis of 19.5, potassium of 3.0, and his chest imaging reveals mediastinal lymphadenopathy, calcified granulomatous disease, and viral pneumonia. The pt received 1L of LR, azithromycin, zosyn, and vancomycin in the ED. Blood cultures are pending. His COVID/flu panel are negative. The ED PA consulted the hospitalist team for further medical management. I admitted the pt to the medical surgical floor. [facility] Disclaimer: The information contained in this section may have been updated after the patient was seen, as this information can be updated by other users. Medical History (Updated 12/18/23 @ 21:42 by AMY Mabry) Hepatitis C HLD (hyperlipidemia) Social History Smoking Status: Former smoker tobacco type: smokeless tobacco alcohol intake: never substance use type: former substance user and opiates current occupational status: unemployed and other Travel in the last 8 weeks: None household members: other housing: house Review of Systems *Cardiovascular Cardiovascular: Reports system reviewed and no additional complaints, except as documented and Reports dyspnea *Respiratory Respiratory: Reports cough and Reports dyspnea *Gastrointestinal Gastrointestinal: Reports system reviewed and no additional complaints, except as documented *Genitourinary Genitourinary: Reports system reviewed and no additional complaints, except as documented *Musculoskeletal Musculoskeletal: Reports back pain *Neurologic Neurologic: Reports system reviewed and no additional complaints, except as documented Meds Home Medications and Allergies Home Medications Medication Instructions Recorded Confirmed Type buprenorphine 8 mg-naloxone 2 mg 1.5 tab sublingual DAILY 02/27/21 12/18/23 History sublingual tablet atorvastatin 20 mg tablet See Rx Instructions .Route 09/21/23 12/18/23 Rx .COMPLEX #90 tabs quetiapine 100 mg tablet (Seroquel) 100 mg PO HS #90 tabs 09/21/23 12/18/23 Rx gabapentin 800 mg tablet 800 mg PO TID #90 tabs 10/28/23 12/18/23 Rx New Prescriptions to Start Prescriptions: Allergies Allergy/AdvReac Type Severity Reaction Status Date / Time No Known Allergies Allergy Verified 09/21/23 13:21 Exam Data for Last 24 hours Vital signs and Labs for Last 24 Hours: Temp Pulse Resp BP Pulse Ox O2 Del Method O2 Flow Rate 98.4 F 98 H 20 137/96 H 94 L Nasal Cannula 3 12/18/23 20:57 12/18/23 21:00 12/18/23 21:00 12/18/23 21:00 12/18/23 21:00 12/18/23 21:00 12/18/23 21:00 Laboratory Results - last 24 hr 12/18/23 18:59: SARS-CoV-2 (PCR) Not detected, Influenza A Untype (PCR) Not detected, Influenza Type B (PCR) Not detected, Group A Strep Rapid Negative 12/18/23 19:07: VBG pH 7.44 H, VBG pCO2 47.5, VBG pO2 41.7 H, VBG HCO3 31.2 H, VBG Total CO2 32.7 H, VBG O2 Saturation 77.9 H, VBG Base Excess 7.0 H 12/18/23 19:20: WBC 19.5 H, RBC 4.43 L, Hgb 14.1, Hct 39.6 L, MCV 89.3, MCH 31.7 H, MCHC 35.5 H, RDW 12.7, Plt Count 536 H, MPV 8.1, Neut % (Auto) 85.7 H, Lymph % (Auto) 9.5 L, [place] % (Auto) 3.6, Eos % (Auto) 1.0, Baso % (Auto) 0.3, Neut # (Auto) 16.8 H, Lymph # (Auto) 1.8, [place] # (Auto) 0.7, Eos # (Auto) 0.2, Baso # (Auto) 0.1, Total Counted 100, Neutrophils % (Manual) 82 H, Lymphocytes % (Manual) 14, Monocytes % (Manual) 4, Platelet Estimate Moderate increase, RBC Morphology Normal, Sodium 135 L, Potassium 3.0 L, Chloride 95 L, Carbon Dioxide 37 H, Anion Gap 6.0, BUN 8 L, Creatinine 0.70, Estimated Creat Clear 185, Estimated GFR 126, Est GFR ( Amer) 153, Glucose 142 H, Calcium 8.6, Procalcitonin 0.114 12/18/23 19:45: Lactate 1.3 I & O for Last 24 hours: Intake & Output 12/15/23 12/16/23 12/17/23 12/18/23 23:59 23:59 23:59 23:59 Intake Total 1150 / 1150 Balance 1150 / 1150 Weight 91.626 kg *Routine HEENT Exam Head: Present normocephalic Eye: Present EOMI ENT: Present mucous membranes moist *Routine Neck Exam Neck: Present full ROM *Routine Respiratory Exam Respiratory: Present wheezes, crackles and symmetric chest movement *Routine Cardiovascular Exam Cardiovascular: Present RRR *Routine Abdominal Exam Abdominal: Present soft and normoactive bowel sounds; Absent tenderness *Routine Rectal Exam Rectal:: deferred *Routine Genitalia Exam Genitalia:: deferred *Routine Extremities Exam Extremities: Present full ROM *Routine Skin Exam Skin: Present intact *Routine Neurological Exam Neurological: Present alert and oriented X3 Assessment and Plan *Assessment and plan (1) Sepsis: Status: Acute Category: Medical Code(s): A41.9 - Sepsis, unspecified organism (2) Pneumonia: Status: Acute Category: Medical Code(s): J18.9 - Pneumonia, unspecified organism (3) Hypokalemia: Status: Acute Category: Medical Code(s): E87.6 - Hypokalemia (4) Opioid use disorder: Status: Acute Category: Medical Code(s): F11.99 - Opioid use, unspecified with unspecified opioid-induced disorder (5) HLD (hyperlipidemia): Status: Acute Category: Medical Code(s): E78.5 - Hyperlipidemia, unspecified (6) Tobacco use: Status: Acute Category: Social Hx Code(s): Z72.0 - Tobacco use Plan 38 year old male presented to [facility] ED for c/o SOB, cough, and fever. PMHX of HLD, opioid use disorder, Hep C, and tobacco use. Pt was dx 1 week prior with influenza A. The pt's ED workup reveals elevated HR, increased RR, o2 use, leukocytosis of 19.5, potassium of 3.0, and his chest imaging reveals mediastinal lymphadenopathy, calcified granulomatous disease, and viral pneumonia. The pt received 1L of LR, azithromycin, zosyn, and vancomycin in the ED. Blood cultures are pending. His COVID/flu panel are negative. The ED PA consulted the hospitalist team for further medical management. I admitted the pt to the medical surgical floor. SEPSIS PNEUMONIA -elevated HR, increased RR, o2 use, leukocytosis of 19.5, pneumonia on CTA imaging -ordered repeat cbc for morning -CTA of chest reviewed and reveals mediastinal lymphadenopathy, calcified granulomatous disease, and viral pneumonia -blood cultures pending, lactate and procal WNL -1L of LR given in ED -continue azithromycin, zosyn, and vancomycin -wean 02 as tolerated -Tylenol and toradol PRN for fever and pain -tessalon perles PRN for cough HYPOKALEMIA -K 3.0 -Replaced with 40 meq p.o -ordered repeat bmp in morning OPIOID USE DISORDER HLD -continue atorvastatin, buprenorphine-naloxone, gabapentin, and quetiapine. TOBACCO USE -nicotine patch PRN FULL CODE REGULAR DIET DVT: HEPARIN SQ
--- NOTE | 2023-12-18 21:25 | PC.NURSE ---
Patient arrived to floor via wheelchair from ED at 21:21.
[2023-12-18] MEDS: VANCOMYCIN HCL 2,000 MG in 0.9 % SODIUM CHLORIDE 500 ML 125 MG IV (22:15)
[2023-12-18] MEDS: BENZONATATE 100MG CAPSULE 100 MG PO (22:16)
[2023-12-18] MEDS: GABAPENTIN 800MG TABLET 800 MG PO (22:16)
[2023-12-18] MEDS: ACETAMINOPHEN 325MG TAB 650 MG PO (22:17)
[2023-12-18] MEDS: POTASSIUM CHLORIDE 10MEQ TABLET.ER 40 MEQ PO (22:17)
[2023-12-19] VITALS (13 sets, daily range): BP systolic 122–134; BP diastolic 55–81; PULSE 64–99; RESP 17–24; TEMP 36.9–37.7; O2SAT 84–98; BMI 30.1
[2023-12-19] MEDS: QUETIAPINE 100MG TABLET 100 MG PO (00:22)
[2023-12-19] MEDS: IPRATROPIUM/ALBUTEROL 3 ML NEB IH ×3 (01:59→18:56)
[2023-12-19] MEDS: PIPERCILLIN/TAZO 3.375 GM in 0.9 % SODIUM CHLORIDE 50 ML IV ×4 (02:03→19:45)
--- NOTE | 2023-12-19 06:06 | PC.NURSE ---
PT is on 3 L NC tolerating well with sats above 90%. Pt has complained of intermittent coughing and had episodes of SOA. PRN medication administered - see DEC. Pt was able to rest throughout the night.
[2023-12-19 06:40] LABS: Chloride 103 mmol/L (98-107)
[2023-12-19 06:41] LABS: Potassium 3.2 mmoL/L (3.5-5.1); Sodium 140 mmol/L (136-145)
[2023-12-19 06:44] LABS: Anion Gap 6.2 mEq/L (5-15); Blood Urea Nitrogen 4 mg/dl (9-20); Calcium 8.1 mg/dl (8.4-10.2); Carbon Dioxide 34 mmol/L (22.0-30.0); Creatinine Clearance Estimated 187 mL/min (50-200); Estimated Glomerular Filt Rate 126 ml/min (>60); GFR (African American) 153 ML/MIN (>60); Glucose 100 mg/dl (74-100)
[2023-12-19 06:45] LABS: Basophils % 0.2 % (0.1-2.0); Eosinophils # 0.2 K/mm3 (0.0-0.4); Eosinophils % 1.3 % (0.1-12.0); Hematocrit 35.1 % (42.0-52.0); Lymphocytes # 3.2 K/mm3 (0.7-4.5); Lymphocytes % 20.3 % (10-50); Mean Corpuscular HGB Conc 35.7 g/dL (31.8-35.4); Mean Corpuscular Hemoglobin 31.6 pg (27.0-31.2); Mean Corpuscular Volume 88.5 fl (80-94); Mean Platelet Volume 8.5 fl (7.4-10.4); Monocytes # 0.7 K/mm3 (0.1-1.0); Monocytes % 4.3 % (1.7-9.3); Neutrophils # 11.7 K/mm3 (1.8-7.8); Neutrophils % 73.9 % (37.0-80.0); Platelet Count 503 K/mm3 (142-424); Red Blood Count 3.97 M/mm3 (4.60-6.20); Red Cell Distribution Width 12.8 % (11.5-17.5); White Blood Count 15.8 K/mm3 (4.8-10.8)
[2023-12-19 06:49] LABS: Hemoglobin 12.6 g/dL (14.1-18.0); MANUAL DIFFERENTIAL MANUAL DIFFERENTIAL (MANUAL DIFF)
--- NOTE | 2023-12-19 06:53 | EXP.SEPSISRE ---
[facility] Tissue Perfusion Eval Sepsis Re-Evaluation Performed: Yes Date Performed: 12/18/23 Time Performed: 23:00
--- NOTE | 2023-12-19 07:34 | [facility].PHAINT1 ---
Pharmacy Intervention Comments: Verified home medications using external fill history and spoke with patient at bedside to confirm he is taking buprenorphine-naloxone 8-2mg 1 tablet twice daily.
--- NOTE | 2023-12-19 07:40 | EXP.PHA.CONS ---
Pharmacy Consult Date: 12/19/23 Time: 07:40 Referring provider: DR HORTON Reason for Consult:: VANCOMYCIN DOSING CONSULT Allergies Allergy/AdvReac Type Severity Reaction Status Date / Time No Known Allergies Allergy Verified 09/21/23 13:21 Home Medications Medication Instructions Recorded Confirmed Type buprenorphine 8 mg-naloxone 2 mg 1 tab sublingual BID 02/27/21 12/18/23 History sublingual tablet quetiapine 100 mg tablet (Seroquel) 100 mg PO HS #90 tabs 09/21/23 12/18/23 Rx gabapentin 800 mg tablet 800 mg PO TID #90 tabs 10/28/23 12/18/23 Rx atorvastatin 20 mg tablet 20 mg PO DAILY Cholesterol 12/19/23 12/19/23 History New Prescriptions to Start Prescriptions: Height: 1.75 m Weight: 92.17 kg Laboratory Results:: Laboratory Results - last 24 hr 12/18/23 18:59: SARS-CoV-2 (PCR) Not detected, Influenza A Untype (PCR) Not detected, Influenza Type B (PCR) Not detected, Group A Strep Rapid Negative 12/18/23 19:07: VBG pH 7.44 H, VBG pCO2 47.5, VBG pO2 41.7 H, VBG HCO3 31.2 H, VBG Total CO2 32.7 H, VBG O2 Saturation 77.9 H, VBG Base Excess 7.0 H 12/18/23 19:20: WBC 19.5 H, RBC 4.43 L, Hgb 14.1, Hct 39.6 L, MCV 89.3, MCH 31.7 H, MCHC 35.5 H, RDW 12.7, Plt Count 536 H, MPV 8.1, Neut % (Auto) 85.7 H, Lymph % (Auto) 9.5 L, [place] % (Auto) 3.6, Eos % (Auto) 1.0, Baso % (Auto) 0.3, Neut # (Auto) 16.8 H, Lymph # (Auto) 1.8, [place] # (Auto) 0.7, Eos # (Auto) 0.2, Baso # (Auto) 0.1, Total Counted 100, Neutrophils % (Manual) 82 H, Lymphocytes % (Manual) 14, Monocytes % (Manual) 4, Platelet Estimate Moderate increase, RBC Morphology Normal, Sodium 135 L, Potassium 3.0 L, Chloride 95 L, Carbon Dioxide 37 H, Anion Gap 6.0, BUN 8 L, Creatinine 0.70, Estimated Creat Clear 185, Estimated GFR 126, Est GFR ( Amer) 153, Glucose 142 H, Calcium 8.6, Procalcitonin 0.114 12/18/23 19:45: Lactate 1.3 12/19/23 05:47: WBC 15.8 H, RBC 3.97 L, Hgb 12.6 L D, Hct 35.1 L, MCV 88.5, MCH 31.6 H, MCHC 35.7 H, RDW 12.8, Plt Count 503 H, MPV 8.5, Neut % (Auto) 73.9, Lymph % (Auto) 20.3, [place] % (Auto) 4.3, Eos % (Auto) 1.3, Baso % (Auto) 0.2, Neut # (Auto) 11.7 H, Lymph # (Auto) 3.2, [place] # (Auto) 0.7, Eos # (Auto) 0.2, Baso # (Auto) 0.0, Sodium 140, Potassium 3.2 L, Chloride 103, Carbon Dioxide 34 H, Anion Gap 6.2, BUN 4 L D, Creatinine 0.70, Estimated Creat Clear 187, Estimated GFR 126, Est GFR ( Amer) 153, Glucose 100 D, Calcium 8.1 L Medical History: Medical History (Updated 12/18/23 @ 21:42 by AMY Mabry) Hepatitis C HLD (hyperlipidemia) Assessment and Plan Assessment and plan all Dx Assessment and Plan for all problems:: Pharmacokinetic dosing service Objective: Age: 38 yo Serum creatinine: 0.7 mg/dL Height: 68.9 Inches Weight (kg): 92.17 Diagnosis: PNEUMONIA/SEPSIS Assessment: IBW (kg): 70.47 Dosing wt(kg): 92.17 Estimated Creatinine clearance (ml/min): 130 Clearance limited to 130 ml/min to reduce risk of overdosing. CRCL method: Cockcroft and Gault using ibw(default). Drug selected: Vancomycin Loading dose (mg): 2000 MG Vd (liters): 64.5 (factor used: 0.7 L/kg) Stef (hr-1): 0.112 Half life (hrs): 6.19 CLvanco=?? 7.224 L/hr Recommended dose: 1750 mg Interval: 12 hrs Infusion time (hrs): 2.0 Predicted peak (mcg/mL): 32.9 Predicted trough (mcg/mL): 10.73 Total body weight is being used for vancomycin dosing. Recommendations: Give Vancomycin 1750 mg q 12 hrs with an expected Cpeak of 32.9 mcg/ml and an expected Ctrough of 10.73 mcg/ml TO START 12/19/23 AT 10:00, LOADING DOSE OF VANCOMYCIN 2000 MG GIVEN 12/18/23 AT 22:15. AUC 0-24 /ROXANE Data: ROXANE 0.5 mcg/mL:?? AUC/ROXANE:? 969.0 ROXANE 1.0 mcg/mL:?? AUC/ROXANE:? 484.5 --------- ROXANE 1.5 mcg/mL:?? AUC/ROXANE:? 323.0 ROXANE 2.0 mcg/mL:?? AUC/ROXANE:? 242.2 Thank you for the consult
[2023-12-19 08:05] LABS: Eosinophils % 2 % (0-3); Lymphocytes % 21 % (10-50); Monocytes % 5 % (2-9); Neutrophils % 72 % (42-76); Platelet Estimate Slight Increase; RBC Morphology Normal; Total Cells Counted 100
[2023-12-19] MEDS: ATORVASTATIN 20MG TABLET 20 MG PO (08:20)
[2023-12-19] MEDS: HEPARIN SODIUM 5,000 UNIT/ML VIAL 5000 UNIT SQ ×2 (08:20→20:22)
[2023-12-19] MEDS: GABAPENTIN 800MG TABLET 800 MG PO ×3 (08:20→20:23)
[2023-12-19] MEDS: BUPRENORPHINE/NALOXONE 8MG/2MG ODT 1 EACH SL ×2 (08:20→20:22)
[2023-12-19] MEDS: POTASSIUM CHLORIDE 20MEQ TAB 60 MEQ PO (08:56)
[2023-12-19] MEDS: VANCOMYCIN/WATER FOR INJ (PEG) 1.75 GM/350 ML PIGGYBACK IV (09:24)
--- NOTE | 2023-12-19 09:38 | P.CONS_ITS ---
History of Present Illness History of present illness: Mr. Jimenez is a 38-year-old male with reported history of dyslipidemia, hep C, tobacco abuse presented to ER with worsening respiratory distress cough and subjective fevers. Admits proximal worsening respiratory status along with cough chest pain and productive phlegm. Prior smoker. [facility] Disclaimer: The information contained in this section may have been updated after the patient was seen, as this information can be updated by other users. Medical History (Updated 12/19/23 @ 10:41 by Leydi Sylvester MD) Acute respiratory failure with hypoxia Hepatitis C HLD (hyperlipidemia) Social History (Updated 12/18/23 @ 22:09 by Radhika Moss RN) Smoking Status: Former smoker tobacco type: smokeless tobacco alcohol intake: never substance use type: former substance user and opiates current occupational status: unemployed and other Travel in the last 8 weeks: None household members: other housing: house Review of Systems Constitutional Constitutional: Reports anorexia, Reports body ache(s) and Reports fatigue Eyes Eyes: Denies eye discharge, Denies dry eyes, Denies irritation and Denies itchy eyes ENT Ears, Nose, Mouth, and Throat: Denies epistaxis, Denies facial pain, Denies lip swelling and Denies throat swelling *Cardiovascular Cardiovascular: Reports dyspnea and Reports dyspnea on exertion *Respiratory Respiratory: Reports chest congestion, Reports cough, Reports dyspnea, Reports dyspnea on exertion, Reports excessive phlegm production, Denies hemoptysis, Reports pain on inspiration and Reports pain with cough *Gastrointestinal Gastrointestinal: Denies abdominal pain, Denies belching and Denies cramping *Musculoskeletal Musculoskeletal: Reports back pain, Reports myalgias and Reports other (No small joint swelling or Pain) *Neurologic Neurologic: Reports system reviewed and no additional complaints, except as documented Psychiatric Psychiatric: Denies homicidal ideation and Denies suicidal ideation Endocrine Endocrine: Reports fatigue and Denies heat intolerance Hematologic/Lymphatic Hematologic/Lymphatic: Denies easy bleeding and Denies lymphadenopathy Allergic/Immunologic Allergic/Immunologic: Denies itchy eyes, Denies lip swelling and Denies throat swelling Pulmonology Exam Inpatient Vital signs and Labs for Last 24 Hours: Temp Pulse Resp BP Pulse Ox O2 Del Method O2 Flow Rate 98.4 F 99 H 22 122/55 L 94 L Nasal Cannula 3 12/19/23 08:00 12/19/23 08:00 12/19/23 08:00 12/19/23 08:00 12/19/23 08:00 12/19/23 08:00 12/19/23 06:44 FiO2 32 12/19/23 01:58 Laboratory Results - last 24 hr 12/18/23 18:59: SARS-CoV-2 (PCR) Not detected, Influenza A Untype (PCR) Not detected, Influenza Type B (PCR) Not detected, Group A Strep Rapid Negative 12/18/23 19:07: VBG pH 7.44 H, VBG pCO2 47.5, VBG pO2 41.7 H, VBG HCO3 31.2 H, VBG Total CO2 32.7 H, VBG O2 Saturation 77.9 H, VBG Base Excess 7.0 H 12/18/23 19:20: WBC 19.5 H, RBC 4.43 L, Hgb 14.1, Hct 39.6 L, MCV 89.3, MCH 31.7 H, MCHC 35.5 H, RDW 12.7, Plt Count 536 H, MPV 8.1, Neut % (Auto) 85.7 H, Lymph % (Auto) 9.5 L, [place] % (Auto) 3.6, Eos % (Auto) 1.0, Baso % (Auto) 0.3, Neut # (Auto) 16.8 H, Lymph # (Auto) 1.8, [place] # (Auto) 0.7, Eos # (Auto) 0.2, Baso # (Auto) 0.1, Total Counted 100, Neutrophils % (Manual) 82 H, Lymphocytes % (Manual) 14, Monocytes % (Manual) 4, Platelet Estimate Moderate increase, RBC Morphology Normal, Sodium 135 L, Potassium 3.0 L, Chloride 95 L, Carbon Dioxide 37 H, Anion Gap 6.0, BUN 8 L, Creatinine 0.70, Estimated Creat Clear 185, Estimated GFR 126, Est GFR ( Amer) 153, Glucose 142 H, Calcium 8.6, Procalcitonin 0.114 12/18/23 19:45: Lactate 1.3 12/19/23 05:47: WBC 15.8 H, RBC 3.97 L, Hgb 12.6 L D, Hct 35.1 L, MCV 88.5, MCH 31.6 H, MCHC 35.7 H, RDW 12.8, Plt Count 503 H, MPV 8.5, Neut % (Auto) 73.9, Lymph % (Auto) 20.3, [place] % (Auto) 4.3, Eos % (Auto) 1.3, Baso % (Auto) 0.2, Neut # (Auto) 11.7 H, Lymph # (Auto) 3.2, [place] # (Auto) 0.7, Eos # (Auto) 0.2, Baso # (Auto) 0.0, Total Counted 100, Neutrophils % (Manual) 72, Lymphocytes % (Manual) 21, Monocytes % (Manual) 5, Eosinophils % (Manual) 2, Platelet Estimate Slight increase, RBC Morphology Normal, Sodium 140, Potassium 3.2 L, Chloride 103, Carbon Dioxide 34 H, Anion Gap 6.2, BUN 4 L D, Creatinine 0.70, Estimated C reat Clear 187, Estimated GFR 126, Est GFR ( Amer) 153, Glucose 100 D, Calcium 8.1 L I & O for Labs for Last 24 Hours: Intake & Output 12/16/23 12/17/23 12/18/23 12/19/23 23:59 23:59 23:59 23:59 Intake Total 1150 / 1400 250 / 250 Output Total 920 / 920 Balance 1150 / 1400 -670 / -670 Weight 203 lb 3.2 oz 203 lb 3.2 oz Constitutional: Present severe distress Head: Present normocephalic and atraumatic ENT: Present normal exam, normal oropharynx and mucous membranes moist Neck: Present normal inspection and full ROM Respiratory: Present respiratory distress, rhonchi and wheezes; Absent able to speak in complete sentences Cardiac: Present S1/S2, Tachycardia and radial pulses present GI: Present soft and distention; Absent tenderness or guarding Skin: Present intact; Absent cyanosis or jaundice Neuro: Present alert, awake and oriented x 3 Extremities: Present normal inspection; Absent clubbing or cyanosis Psychiatric: Present normal affect and cooperative Meds Home Medications and Allergies Home Medications Medication Instructions Recorded Confirmed Type buprenorphine 8 mg-naloxone 2 mg 1 tab sublingual BID 02/27/21 12/18/23 History sublingual tablet quetiapine 100 mg tablet (Seroquel) 100 mg PO HS #90 tabs 09/21/23 12/18/23 Rx gabapentin 800 mg tablet 800 mg PO TID #90 tabs 10/28/23 12/18/23 Rx atorvastatin 20 mg tablet 20 mg PO DAILY Cholesterol 12/19/23 12/19/23 History New Prescriptions to Start Prescriptions: Allergies Allergy/AdvReac Type Severity Reaction Status Date / Time No Known Allergies Allergy Verified 09/21/23 13:21 Results Laboratory Findings 12/19/23 05:47 12/19/23 05:47 Abnormal lab findings: Abnormal Labs 12/18/23 12/18/23 12/19/23 19:07 19:20 05:47 WBC 19.5 H 15.8 H RBC 4.43 L 3.97 L Hgb 12.6 L D Hct 39.6 L 35.1 L MCH 31.7 H 31.6 H MCHC 35.5 H 35.7 H Plt Count 536 H 503 H Neut % (Auto) 85.7 H Lymph % (Auto) 9.5 L Neut # (Auto) 16.8 H 11.7 H Neutrophils % (Manual) 82 H VBG pH 7.44 H VBG pO2 41.7 H VBG HCO3 31.2 H VBG Total CO2 32.7 H VBG O2 Saturation 77.9 H VBG Base Excess 7.0 H Sodium 135 L Potassium 3.0 L 3.2 L Chloride 95 L Carbon Dioxide 37 H 34 H BUN 8 L 4 L D Glucose 142 H Calcium 8.1 L Assessment and Plan *Assessment and plan (1) Acute respiratory failure with hypoxia: Status: Acute Category: Medical Code(s): J96.01 - Acute respiratory failure with hypoxia (2) Pneumonia: Status: Acute Category: Medical Code(s): J18.9 - Pneumonia, unspecified organism Plan Mr. Jimenez is a 38-year-old male with reported history of dyslipidemia, hep C, tobacco abuse presented to ER with worsening respiratory distress cough and subjective fevers. Admits proximal worsening respiratory status along with cough chest pain and productive phlegm. Prior smoker. Leukocytosis upon admission. VBG hypoxic respiratory failure. CTA upon admission, no evidence of pulmonary embolism. Bilateral upper lobe predominant groundglass opacities left greater than right along with bilateral lower lobe micronodular airspace disease. No dense consolidation noted. The noted lower lobe opacity is not seen patient CT abdomen from August 2023. Influenza A H3 PCR resulted positive on 12/12/2023. COVID-19 and flu PCR resulted negative on this admission. Patient on this admission was initiated on vancomycin Zosyn and azithromycin. On examination patient appeared to be in severe respiratory distress, on 3 L saturating 93%. Plan: Follow with sputum cultures and nasal MRSA PCR DuoNebs every 6 hours on a scheduled basis Continue vancomycin cefepime and azithromycin pending culture results # Thank you for involving pulmonary in this patient care. Will continue to follow.
--- NOTE | 2023-12-19 09:51 | EXP.PN ---
Subjective *Date: 12/19/23 *Time: 18:15 Interval history: Patient complains of cough, Patient was seen and evaluated at the bedside. denies chest pain, shortness of breath, nausea, vomiting, abdominal pain. He feels better than yesterday Exam Data for Last 24 hours Vital signs and Labs for Last 24 Hours: Temp Pulse Resp BP Pulse Ox O2 Del Method O2 Flow Rate 98.4 F 99 H 22 122/55 L 94 L Nasal Cannula 3 12/19/23 08:00 12/19/23 08:00 12/19/23 08:00 12/19/23 08:00 12/19/23 08:00 12/19/23 08:00 12/19/23 06:44 FiO2 32 12/19/23 01:58 Laboratory Results - last 24 hr 12/18/23 18:59: SARS-CoV-2 (PCR) Not detected, Influenza A Untype (PCR) Not detected, Influenza Type B (PCR) Not detected, Group A Strep Rapid Negative 12/18/23 19:07: VBG pH 7.44 H, VBG pCO2 47.5, VBG pO2 41.7 H, VBG HCO3 31.2 H, VBG Total CO2 32.7 H, VBG O2 Saturation 77.9 H, VBG Base Excess 7.0 H 12/18/23 19:20: WBC 19.5 H, RBC 4.43 L, Hgb 14.1, Hct 39.6 L, MCV 89.3, MCH 31.7 H, MCHC 35.5 H, RDW 12.7, Plt Count 536 H, MPV 8.1, Neut % (Auto) 85.7 H, Lymph % (Auto) 9.5 L, [place] % (Auto) 3.6, Eos % (Auto) 1.0, Baso % (Auto) 0.3, Neut # (Auto) 16.8 H, Lymph # (Auto) 1.8, [place] # (Auto) 0.7, Eos # (Auto) 0.2, Baso # (Auto) 0.1, Total Counted 100, Neutrophils % (Manual) 82 H, Lymphocytes % (Manual) 14, Monocytes % (Manual) 4, Platelet Estimate Moderate increase, RBC Morphology Normal, Sodium 135 L, Potassium 3.0 L, Chloride 95 L, Carbon Dioxide 37 H, Anion Gap 6.0, BUN 8 L, Creatinine 0.70, Estimated Creat Clear 185, Estimated GFR 126, Est GFR ( Amer) 153, Glucose 142 H, Calcium 8.6, Procalcitonin 0.114 12/18/23 19:45: Lactate 1.3 12/19/23 05:47: WBC 15.8 H, RBC 3.97 L, Hgb 12.6 L D, Hct 35.1 L, MCV 88.5, MCH 31.6 H, MCHC 35.7 H, RDW 12.8, Plt Count 503 H, MPV 8.5, Neut % (Auto) 73.9, Lymph % (Auto) 20.3, [place] % (Auto) 4.3, Eos % (Auto) 1.3, Baso % (Auto) 0.2, Neut # (Auto) 11.7 H, Lymph # (Auto) 3.2, [place] # (Auto) 0.7, Eos # (Auto) 0.2, Baso # (Auto) 0.0, Total Counted 100, Neutrophils % (Manual) 72, Lymphocytes % (Manual) 21, Monocytes % (Manual) 5, Eosinophils % (Manual) 2, Platelet Estimate Slight increase, RBC Morphology Normal, Sodium 140, Potassium 3.2 L, Chloride 103, Carbon Dioxide 34 H, Anion Gap 6.2, BUN 4 L D, Creatinine 0.70, Estimated Creat Clear 187, Estimated GFR 126, Est GFR ( Amer) 153, Glucose 100 D, Calcium 8.1 L I & O for Last 24 hours: Intake & Output 12/16/23 12/17/23 12/18/23 12/19/23 23:59 23:59 23:59 23:59 Intake Total 1150 / 1400 250 / 250 Output Total 920 / 920 Balance 1150 / 1400 -670 / -670 Weight 92.17 kg 92.17 kg Constitutional Constitutional: no acute distress *Routine HEENT Exam Head: Present normocephalic Eye: Present EOMI and PERRL ENT: Present mucous membranes moist *Routine Neck Exam Neck: Present supple; Absent lymphadenopathy *Routine Respiratory Exam Respiratory: Present rhonchi *Routine Cardiovascular Exam Cardiovascular: Present RRR *Routine Abdominal Exam Abdominal: Present soft and normoactive bowel sounds; Absent tenderness *Routine Extremities Exam Extremities: Absent cyanosis, clubbing or edema *Routine Skin Exam Skin: Present warm; Absent rash *Routine Neurological Exam Neurological: Present alert and oriented X3 Assessment and Plan *Assessment and plan (1) Sepsis: Status: Acute Category: Medical Code(s): A41.9 - Sepsis, unspecified organism (2) Pneumonia: Status: Acute Category: Medical Code(s): J18.9 - Pneumonia, unspecified organism (3) Hypokalemia: Status: Acute Category: Medical Code(s): E87.6 - Hypokalemia (4) Opioid use disorder: Status: Acute Category: Medical Code(s): F11.99 - Opioid use, unspecified with unspecified opioid-induced disorder (5) HLD (hyperlipidemia): Status: Acute Category: Medical Code(s): E78.5 - Hyperlipidemia, unspecified (6) Tobacco use: Status: Acute Category: Social Hx Code(s): Z72.0 - Tobacco use Plan 38 year old male presented to [facility] ED for c/o SOB, cough, and fever. PMHX of HLD, opioid use disorder, Hep C, and tobacco use. Pt was dx 1 week prior with influenza A. The pt's ED workup reveals elevated HR, increased RR, o2 use, leukocytosis of 19.5, potassium of 3.0, and his chest imaging reveals mediastinal lymphadenopathy, calcified granulomatous disease, and viral pneumonia. The pt received 1L of LR, azithromycin, zosyn, and vancomycin in the ED. Blood cultures are pending. His COVID/flu panel are negative. The ED PA consulted the hospitalist team for further medical management. I admitted the pt to the medical surgical floor. SEPSIS PNEUMONIA -CTA of chest reviewed and reveals mediastinal lymphadenopathy, calcified granulomatous disease, and viral pneumonia -continue azithromycin, zosyn, and vancomycin -wean 02 as tolerated -Tylenol and toradol PRN for fever and pain -tessalon perles PRN for cough -conulted pullmonary HYPOKALEMIA - monitor and replace OPIOID USE DISORDER HLD resume atorvastatin buprenorphine-naloxone gabapentin, and quetiapine TOBACCO USE -nicotine patch PRN FULL CODE REGULAR DIET DVT: HEPARIN SQ
--- NOTE | 2023-12-19 17:49 | PC.NURSE ---
A&OX4. TOLERATING 3LNC WELL, HAVE ATTEMPTED TO WEAN, BUT HAVE BEEN UNSUCCESSFUL. PT HAS HACKING INTERMITTENT COUGH, IS PRODUCING SPUTUM. SAMPLE SENT DOWN TODAY. PT HAS HAD NO OTHER C/O, OTHER THAN JUST FEELING TIRED. PT DID GET UP TO THE SHOWER TODAY WHICH DID MAKE HIM FEEL SOME BETTER. FAMILY HAS REMAINED AT BEDSIDE. VSS.
[2023-12-19] MEDS: AZITHROMYCIN 500 MG in 0.9 % SODIUM CHLORIDE 250 ML 250 MG IV (20:22)
[2023-12-19] MEDS: CYCLOBENZAPRINE 10MG TABLET 5 MG PO (23:35)
[2023-12-19] MEDS: ACETAMINOPHEN 325MG TAB 650 MG PO (23:36)
--- NOTE | 2023-12-19 23:48 | PC.NURSE ---
Lost IV access due to infiltration, charge nurse and warehouse logistics manager looked for access, pt refused to let them try. Kike from ER came up, two failed attempts. Requested ER ultrasound to attempt when they get time. Naseem LANDRUM aware of hold on antibiotics, she is okay with waiting until morning.
[2023-12-20] VITALS (13 sets, daily range): BP systolic 128–160; BP diastolic 70–94; PULSE 73–95; RESP 18–22; TEMP 36.6–37.2; O2SAT 90–97; BMI 30.1
[2023-12-20] MEDS: IPRATROPIUM/ALBUTEROL 3 ML NEB IH ×5 (00:24→23:37)
[2023-12-20] MEDS: QUETIAPINE 100MG TABLET 100 MG PO (00:30)
--- NOTE | 2023-12-20 00:33 | PC.NURSE ---
IV infiltrated while zithromax was infusing, 180mL left to be infused.
--- NOTE | 2023-12-20 04:45 | PC.NURSE ---
Pt is alert and oriented. Complained of pain 1 time, treated per dec. Pt IV did infiltrate, noted earlier in shift, DIALLO lewis aware and states to wait for morning to get an ultrasound IV or possible PICC. Pt has rested well through the night. Pt is on 2L NC, O2 sat >90%. Family remains at the bedside. Call light in reach. VSS.
--- NOTE | 2023-12-20 07:44 | P.PN_ITS ---
Subjective *Date: 12/20/23 *Time: 16:22 Interval history: Patient had a rough night, lost his IV. Missed some antibiotics overnight. Continues to have productive cough this morning. Afebrile. No nausea or vomiting. Still feels short of breath. Having anxiety and irritability due to being in the hospital. Medical Exam Vital signs and Labs for Last 24 Hours: Vital Signs Temp Pulse Pulse Resp BP Pulse Ox O2 Del Method 12/20/23 06:42 Nasal Cannula 12/20/23 06:09 94 L Nasal Cannula 12/20/23 06:06 74 12/20/23 06:06 79 12/20/23 04:00 97.9 F 88 20 140/85 97 Nasal Cannula 12/20/23 05:00 Nasal Cannula 12/20/23 02:53 Nasal Cannula 12/20/23 01:00 Nasal Cannula 12/20/23 00:00 98.4 F 94 H 18 131/70 94 L Nasal Cannula 12/20/23 00:25 12/19/23 23:00 Nasal Cannula 12/19/23 21:00 Nasal Cannula 12/19/23 20:00 Nasal Cannula 12/19/23 20:00 99.8 F H 94 H 20 127/70 98 Nasal Cannula 12/19/23 18:57 70 12/19/23 18:57 72 12/19/23 18:57 96 Nasal Cannula 12/19/23 17:30 84 L Room Air 12/19/23 18:34 Nasal Cannula 12/19/23 16:00 97 Nasal Cannula 12/19/23 17:00 Nasal Cannula 12/19/23 15:57 98.6 F 90 18 128/77 97 Nasal Cannula 12/19/23 14:50 Nasal Cannula 12/19/23 13:00 Nasal Cannula 12/19/23 13:57 77 12/19/23 13:57 76 12/19/23 11:45 98.5 F 75 22 132/81 93 L Nasal Cannula 12/19/23 10:34 Nasal Cannula 12/19/23 09:00 Nasal Cannula 12/19/23 08:00 Nasal Cannula 12/19/23 10:20 94 L Nasal Cannula 12/19/23 08:00 98.4 F 99 H 22 122/55 L 94 L Nasal Cannula O2 Flow Rate 12/20/23 06:42 2 12/20/23 06:09 2 12/20/23 06:06 12/20/23 06:06 12/20/23 04:00 2 12/20/23 05:00 2 12/20/23 02:53 2 12/20/23 01:00 2 12/20/23 00:00 2 12/20/23 00:25 2 12/19/23 23:00 2.5 12/19/23 21:00 2.5 12/19/23 20:00 2.5 12/19/23 20:00 2.5 12/19/23 18:57 12/19/23 18:57 12/19/23 18:57 2.5 12/19/23 17:30 12/19/23 18:34 3 12/19/23 16:00 3 12/19/23 17:00 3 12/19/23 15:57 12/19/23 14:50 3 12/19/23 13:00 3 12/19/23 13:57 12/19/23 13:57 12/19/23 11:45 12/19/23 10:34 3 12/19/23 09:00 3 12/19/23 08:00 3 12/19/23 10:20 3 12/19/23 08:00 Intake and Output 12/19/23 12/19/23 12/20/23 15:59 23:59 07:59 Intake Total 520 / 1390 500 / 1390 120 / 120 Output Total 0 / 920 500 / 500 Balance 520 / 470 500 / 470 -380 / -380 Intake: Intake, Oral Amount 520 / 1020 500 / 1020 Intake, Total IV Amount 120 / 120 Azithromycin 500 mg In 0.9 % 70 / 70 Sodium Chloride 250 ml @ 250 mls/hr IV Q24H [facility] Rx#:[id number] Pipercillin/Tazo 3.375 gm In 0. 50 / 50 9 % Sodium Chloride 50 ml @ 100 mls/hr IV Q6H [facility] Rx#:[id number] Output: Output, Urine Amount 0 / 920 500 / 500 Other: Number of Unmeasured Voids 1 1 Weight 92.17 kg Patient Weight 12/20/23 23:59 Weight 92.17 kg Laboratory Results - last 24 hr 12/19/23 05:47: Total Counted 100, Neutrophils % (Manual) 72, Lymphocytes % (Manual) 21, Monocytes % (Manual) 5, Eosinophils % (Manual) 2, Platelet Estimate Slight increase, RBC Morphology Normal I & O for Labs for Last 24 Hours: Intake & Output 12/17/23 12/18/23 12/19/23 12/20/23 23:59 23:59 23:59 23:59 Intake Total 1150 / 1400 1270 / 1390 120 / 120 Output Total 920 / 920 500 / 500 Balance 1150 / 1400 350 / 470 -380 / -380 Weight 92.17 kg 92.17 kg 92.17 kg Constitutional: Present no acute distress, obese, chronically ill appearing and cooperative Head: Present atraumatic and normocephalic ENT: Present normal exam Neck: Present normal inspection Respiratory: Present prolonged expiratory phase, rhonchi, crackles and normal respiratory effort; Absent wheezes Cardiac: Present Reg Rate and Rhythm GI: Present soft and normal bowel sounds; Absent distention or tenderness Extremities: Present normal inspection and full ROM Skin: Present intact; Absent erythema Comment:: Numerous tattoos Neuro: Present Grossly Intact, alert, awake, oriented x 3 and moves all extremities Comment:: Anxious Assessment and Plan *Assessment and plan (1) Sepsis: Status: Acute Category: Medical Code(s): A41.9 - Sepsis, unspecified organism (2) Pneumonia: Status: Acute Category: Medical Code(s): J18.9 - Pneumonia, unspecified organism (3) Hypokalemia: Status: Acute Category: Medical Code(s): E87.6 - Hypokalemia (4) Opioid use disorder: Status: Acute Category: Medical Code(s): F11.99 - Opioid use, unspecified with unspecified opioid-induced disorder (5) HLD (hyperlipidemia): Status: Acute Category: Medical Code(s): E78.5 - Hyperlipidemia, unspecified (6) Tobacco use: Status: Acute Category: Social Hx Code(s): Z72.0 - Tobacco use Plan 38 year old male presented to [facility] ED for c/o SOB, cough, and fever. PMHX of HLD, opioid use disorder, Hep C, and tobacco use. Pt was dx 1 week prior with influenza A. The pt's ED workup reveals elevated HR, increased RR, o2 use, leukocytosis of 19.5, potassium of 3.0, and his chest imaging reveals mediastinal lymphadenopathy, calcified granulomatous disease, and viral pneumonia. The pt received 1L of LR, azithromycin, zosyn, and vancomycin in the ED. Blood cultures are pending. His COVID/flu panel are negative. The ED PA consulted the hospitalist team for further medical management. Admitted to medicine for further management. Personally reviewed chest imaging, concerning for diffuse groundglass opacities consistent with viral pneumonia. Recently diagnosed with the flu on 12/12. Outside the window for Tamiflu. Concern for secondary bacterial pneumonia. Pulmonology assisting with care. Continues to require inpatient management. Problems addressed as follows: SEPSIS PNEUMONIA -CTA of chest reviewed and reveals mediastinal lymphadenopathy, calcified granulomatous disease, and bilateral patchy airspace disease. -continue azithromycin 500 mg daily x 5 days, Zosyn 3.375 mg every 6 hours, and vancomycin IV. Monitoring for toxicity. -Continue supplemental oxygen with goal saturation greater 90%, currently on 2 L -Pulmonology consulted and assisting with care. No change to regimen at this time. -Tylenol and toradol PRN for fever and pain -tessalon perles PRN for cough HYPOKALEMIA - monitor and replace, 3.3 today. Replacing with 40 mEq twice daily orally OPIOID USE DISORDER HLD resume atorvastatin buprenorphine-naloxone gabapentin, and quetiapine TOBACCO USE -nicotine patch PRN White cell count elevated at 15,000, kidney function normal with creatinine 2.7. Repeat CBC, CMP, magnesium ordered for the morning. FULL CODE REGULAR DIET DVT: HEPARIN SQ
[2023-12-20] MEDS: GABAPENTIN 800MG TABLET 800 MG PO ×3 (08:27→20:47)
[2023-12-20] MEDS: ATORVASTATIN 20MG TABLET 20 MG PO (08:27)
[2023-12-20] MEDS: HEPARIN SODIUM 5,000 UNIT/ML VIAL 5000 UNIT SQ ×2 (08:28→20:47)
[2023-12-20] MEDS: BUPRENORPHINE/NALOXONE 8MG/2MG ODT 1 EACH SL ×2 (08:30→20:47)
[2023-12-20] MEDS: BENZONATATE 100MG CAPSULE 100 MG PO ×2 (08:37→20:52)
[2023-12-20] MEDS: CYCLOBENZAPRINE 10MG TABLET 5 MG PO (08:38)
[2023-12-20] MEDS: ACETAMINOPHEN 325MG TAB 650 MG PO (08:38)
[2023-12-20 08:39] LABS: Basophils % 0.2 % (0.1-2.0); Eosinophils # 0.3 K/mm3 (0.0-0.4); Eosinophils % 1.7 % (0.1-12.0); Hematocrit 34.3 % (42.0-52.0); Lymphocytes # 3.3 K/mm3 (0.7-4.5); Mean Corpuscular HGB Conc 34.9 g/dL (31.8-35.4); Mean Corpuscular Hemoglobin 31.4 pg (27.0-31.2); Mean Corpuscular Volume 89.7 fl (80-94); Mean Platelet Volume 8.1 fl (7.4-10.4); Monocytes # 0.8 K/mm3 (0.1-1.0); Neutrophils # 10.8 K/mm3 (1.8-7.8); Neutrophils % 71.2 % (37.0-80.0); Platelet Count 566 K/mm3 (142-424); Red Blood Count 3.82 M/mm3 (4.60-6.20); Red Cell Distribution Width 13.1 % (11.5-17.5); White Blood Count 15.2 K/mm3 (4.8-10.8)
[2023-12-20 08:45] LABS: MANUAL DIFFERENTIAL MANUAL DIFFERENTIAL (MANUAL DIFF)
[2023-12-20 09:05] LABS: Chloride 105 mmol/L (98-107); Potassium 3.3 mmoL/L (3.5-5.1); Sodium 139 mmol/L (136-145)
[2023-12-20 09:08] LABS: Alanine Aminotransferase 27 U/L (12-78); Albumin Level 3.4 g/dl (3.5-5.0); Albumin/Globulin Ratio 0.9 (1.1-1.8); Alkaline Phosphatase 114 U/L (38-126); Anion Gap 7.3 mEq/L (5-15); Aspartate Amino Transferase 34 U/L (17-59); Bilirubin,Total 0.9 mg/dl (0.2-1.3); Blood Urea Nitrogen 3 mg/dl (9-20); Calcium 8.3 mg/dl (8.4-10.2); Carbon Dioxide 30 mmol/L (22.0-30.0); Creatinine Clearance Estimated 187 mL/min (50-200); Estimated Glomerular Filt Rate 126 ml/min (>60); GFR (African American) 153 ML/MIN (>60); Globulin 3.7 g/dL (1.3-3.2); Glucose 98 mg/dl (74-100); Total Protein,Serum 7.1 g/dl (6.3-8.2)
[2023-12-20 09:21] LABS: Eosinophils % 2 % (0-3); Lymphocytes % 19 % (10-50); Monocytes % 3 % (2-9); Neutrophils % 76 % (42-76); Platelet Estimate Slight Increase; RBC Morphology Normal; Total Cells Counted 100
--- NOTE | 2023-12-20 09:31 | XR_ITS ---
FINAL REPORT CLINICAL HISTORY: PNM COMPARISON: 12/18/2023 FINDINGS: The heart size is normal. The mediastinum is normal. The lungs are underinflated. There is mild airspace opacity at the left lung base. There is new atelectasis in the right upper lobe and right base. There are no pleural effusions. There is no pneumothorax. There is no osseous abnormality. IMPRESSION: Airspace opacity left lower lobe probable pneumonia, unchanged from prior. Reviewed, Interpreted and Dictated by Ole Garcia MD Transcribed by Sonya Gee Authenticated and [facility]
--- NOTE | 2023-12-20 09:31 | P.PN_ITS ---
Subjective *Date: 12/20/23 *Time: 10:10 Interval history: No acute respiratory events overnight. Patient admits improving respiratory status. Pulmonology Exam Inpatient Vital signs and Labs for Last 24 Hours: Temp Pulse Resp BP Pulse Ox O2 Del Method O2 Flow Rate 98.5 F 86 18 160/94 H 96 Nasal Cannula 2 12/20/23 08:00 12/20/23 08:00 12/20/23 08:00 12/20/23 08:00 12/20/23 08:00 12/20/23 09:00 12/20/23 09:00 FiO2 32 12/19/23 01:58 Laboratory Results - last 24 hr 12/20/23 08:26: WBC 15.2 H, RBC 3.82 L, Hgb 12.0 L, Hct 34.3 L, MCV 89.7, MCH 31.4 H, MCHC 34.9, RDW 13.1, Plt Count 566 H, MPV 8.1, Neut % (Auto) 71.2, Lymph % (Auto) 22.0, [place] % (Auto) 5.0, Eos % (Auto) 1.7, Baso % (Auto) 0.2, Neut # (Auto) 10.8 H, Lymph # (Auto) 3.3, [place] # (Auto) 0.8, Eos # (Auto) 0.3, Baso # (Auto) 0.0, Total Counted 100, Neutrophils % (Manual) 76, Lymphocytes % (Manual) 19, Monocytes % (Manual) 3, Eosinophils % (Manual) 2, Platelet Estimate Slight increase, RBC Morphology Normal, Sodium 139, Potassium 3.3 L, Chloride 105, Carbon Dioxide 30, Anion Gap 7.3, BUN 3 L, Creatinine 0.70, Estimated Creat Clear 187, Estimated GFR 126, Est GFR ( Amer) 153, Glucose 98, Calcium 8.3 L, Total Bilirubin 0.9, AST 34, ALT 27, Alkaline Phosphatase 114, Total Protein 7.1, Albumin 3.4 L, Globulin 3.7 H, Albumin/Globulin Ratio 0.9 L I & O for Labs for Last 24 Hours: Intake & Output 12/17/23 12/18/23 12/19/23 12/20/23 23:59 23:59 23:59 23:59 Intake Total 1150 / 1400 1270 / 1390 120 / 120 Output Total 920 / 920 750 / 750 Balance 1150 / 1400 350 / 470 -630 / -630 Weight 203 lb 3.2 oz 203 lb 3.2 oz 203 lb 3.201 oz Constitutional: Present moderate distress Head: Present normocephalic and atraumatic ENT: Present normal exam, normal oropharynx and mucous membranes moist Neck: Present normal inspection and full ROM Respiratory: Present respiratory distress and rhonchi; Absent wheezes or able to speak in complete sentences Cardiac: Present S1/S2, Tachycardia and radial pulses present GI: Present soft and distention; Absent tenderness or guarding Skin: Present intact; Absent cyanosis or jaundice Neuro: Present alert, awake and oriented x 3 Extremities: Present normal inspection; Absent clubbing or cyanosis Psychiatric: Present normal affect and cooperative Assessment and Plan *Assessment and plan (1) Acute respiratory failure with hypoxia: Status: Acute Category: Medical Code(s): J96.01 - Acute respiratory failure with hypoxia (2) Pneumonia: Status: Acute Category: Medical Code(s): J18.9 - Pneumonia, unspecified organism Plan Mr. Jimenez is a 38-year-old male with reported history of dyslipidemia, hep C, tobacco abuse presented to ER with worsening respiratory distress cough and subjective fevers. Admits proximal worsening respiratory status along with cough chest pain and productive phlegm. Prior smoker. Leukocytosis upon admission. VBG hypoxic respiratory failure. CTA upon admission, no evidence of pulmonary embolism. Bilateral upper lobe predominant groundglass opacities left greater than right along with bilateral lower lobe micronodular airspace disease. No dense consolidation noted. The noted lower lobe opacity is not seen patient CT abdomen from August 2023. Influenza A H3 PCR resulted positive on 12/12/2023. COVID-19 and flu PCR resulted negative on this admission. Patient on this admission was initiated on vancomycin Zosyn and azithromycin. On initial examination examination patient appeared to be in severe respiratory distress, on 3 L saturating 93%. Interval update: No acute respiratory events overnight. Improving ox requirements. Patient admits improving respiratory distress. Afebrile. Hemodynamically stable. Leukocytosis stable. Awaiting sputum and blood cultures. Plan: Follow with sputum cultures and nasal MRSA PCR DuoNebs every 6 hours on a scheduled basis Continue vancomycin cefepime and azithromycin pending culture results, will likely wean antibiotic regimen pending discharge # Thank you for involving pulmonary in this patient care. Will continue to follow.
[2023-12-20] MEDS: VANCOMYCIN/WATER FOR INJ (PEG) 1.75 GM/350 ML PIGGYBACK IV (14:27)
--- NOTE | 2023-12-20 17:28 | PC.NURSE ---
A&OX4. REMAINS ON RA, TOLERATING WELL. WILL CONTINUE TO WEAN TOLERATED. PT HAS HACKING INTERMITTENT COUGH, PRODUCING LIGHT GREEN SPUTUM. UP INDEPENDENTLY TO BATHROOM T/O SHIFT, AND HAS TAKEN A SHOWER. PT RECEIVED MIDLINE TODAY, TOLERATED WELL. FAMILY AT BEDSIDE T/O SHIFT. HAS RECEIVED PRN COUGH AND PAIN MEDICATION PER DEC, EFFECTIVENESS NOTED. NO OTHER NEEDS OR C/O THUS FAR, VSS.
[2023-12-20] MEDS: PIPERCILLIN/TAZO 3.375 GM in 0.9 % SODIUM CHLORIDE 50 ML IV ×2 (17:34→22:15)
[2023-12-20] MEDS: AZITHROMYCIN 500 MG in 0.9 % SODIUM CHLORIDE 250 ML 250 MG IV (20:45)
[2023-12-20] MEDS: POTASSIUM CHLORIDE 20MEQ TAB 40 MEQ PO (20:46)
--- NOTE | 2023-12-20 22:48 | PC.NURSE ---
Pt C/O excessive coughing and SOB Pt O2 currently @ 2L, medication given for cough per dec. Pt SO at bedside states that pt is running a fever, pt temp 99.1 F, tech will check pt temp again at MD. Pt denies pain at this time
[2023-12-21] VITALS (7 sets, daily range): BP systolic 129–161; BP diastolic 78–92; PULSE 74–102; RESP 16–21; TEMP 36.6–37.1; O2SAT 91–97; BMI 30.1
[2023-12-21] MEDS: QUETIAPINE 100MG TABLET 100 MG PO (01:06)
[2023-12-21] MEDS: VANCOMYCIN/WATER FOR INJ (PEG) 1.75 GM/350 ML PIGGYBACK IV (01:32)
--- NOTE | 2023-12-21 03:36 | PC.NURSE ---
called YOAN Perez @ [phone] notified that pt is SOB and has excessive coughing. unable to give tesslan perels, no new orders at this time.
--- NOTE | 2023-12-21 03:52 | PC.NURSE ---
0328: Pt O2 sat 90%, Chris notified and gave orders to increase O2 to 4L. 0340: Pt sats unchanged RR 22 O2 increased to 6L.
--- NOTE | 2023-12-21 03:58 | PC.NURSE ---
Pt on 6L of O2 and sating at 94%, Pt sleeping, RR 18. inspiratory wheezing noted in bi lateral lungs.
--- NOTE | 2023-12-21 04:09 | PC.NURSE ---
Pt is A&O x4, currently on 6L of O2 and sating @ 95%. Pt has C/O cough this shift and was treated per DEC. Pt has denied pain this shift thus far and has tolerated antibiotic therapy well, SO remains at bedside. Pt coughing ceased as pt is sleeping at this time with noted rise and fall of chest and no distress noted.
[2023-12-21] MEDS: PIPERCILLIN/TAZO 3.375 GM in 0.9 % SODIUM CHLORIDE 50 ML IV ×2 (04:40→10:19)
[2023-12-21] MEDS: BENZONATATE 100MG CAPSULE 100 MG PO (04:46)
[2023-12-21] MEDS: IPRATROPIUM/ALBUTEROL 3 ML NEB IH (05:10)
[2023-12-21] MEDS: guaiFENesin 600 MG TAB.ER.12H 1200 MG PO ×2 (07:04→21:17)
[2023-12-21 07:18] LABS: Basophils % 0.2 % (0.1-2.0); Eosinophils # 0.3 K/mm3 (0.0-0.4); Eosinophils % 1.9 % (0.1-12.0); Hematocrit 32.3 % (42.0-52.0); Lymphocytes # 2.6 K/mm3 (0.7-4.5); Lymphocytes % 18.2 % (10-50); Mean Corpuscular HGB Conc 34.1 g/dL (31.8-35.4); Mean Corpuscular Hemoglobin 30.6 pg (27.0-31.2); Mean Corpuscular Volume 89.7 fl (80-94); Mean Platelet Volume 8.1 fl (7.4-10.4); Monocytes # 0.5 K/mm3 (0.1-1.0); Monocytes % 3.7 % (1.7-9.3); Neutrophils # 10.9 K/mm3 (1.8-7.8); Platelet Count 629 K/mm3 (142-424); Red Cell Distribution Width 13.2 % (11.5-17.5); White Blood Count 14.4 K/mm3 (4.8-10.8)
[2023-12-21 07:29] LABS: Chloride 110 mmol/L (98-107); Sodium 138 mmol/L (136-145)
[2023-12-21 07:30] LABS: Potassium 3.7 mmoL/L (3.5-5.1)
[2023-12-21 07:32] LABS: Alanine Aminotransferase 23 U/L (12-78); Alkaline Phosphatase 96 U/L (38-126); Anion Gap 2.7 mEq/L (5-15); Aspartate Amino Transferase 34 U/L (17-59); Bilirubin,Total 0.8 mg/dl (0.2-1.3); Blood Urea Nitrogen 3 mg/dl (9-20); Carbon Dioxide 29 mmol/L (22.0-30.0); Creatinine Clearance Estimated 187 mL/min (50-200); Estimated Glomerular Filt Rate 126 ml/min (>60); GFR (African American) 153 ML/MIN (>60)
[2023-12-21 07:33] LABS: Albumin/Globulin Ratio 0.8 (1.1-1.8); Calcium 8.1 mg/dl (8.4-10.2); Globulin 3.6 g/dL (1.3-3.2); Glucose 99 mg/dl (74-100); Magnesium 1.9 mg/dl (1.6-2.3); Total Protein,Serum 6.6 g/dl (6.3-8.2)
--- NOTE | 2023-12-21 08:01 | P.PN_ITS ---
Subjective *Date: 12/21/23 *Time: 08:01 Medical Exam Vital signs and Labs for Last 24 Hours: Vital Signs Temp Pulse Pulse Resp BP Pulse Ox O2 Del Method 12/21/23 07:52 Nasal Cannula 12/21/23 05:10 92 H 12/21/23 05:10 95 H 12/21/23 05:10 96 Nasal Cannula 12/21/23 04:00 98.8 F 93 H 18 147/86 H 97 Nasal Cannula 12/21/23 06:44 Nasal Cannula 12/21/23 04:49 Nasal Cannula 12/21/23 02:48 Nasal Cannula 12/21/23 01:00 Nasal Cannula 12/21/23 00:00 97 Nasal Cannula 12/21/23 00:00 98.6 F 102 H 20 161/90 H 97 Nasal Cannula 12/20/23 23:38 73 12/20/23 23:37 73 12/20/23 23:00 Nasal Cannula 12/20/23 21:00 Nasal Cannula 12/20/23 20:00 22 93 L Nasal Cannula 12/20/23 19:59 99.0 F 90 20 143/73 H 93 L Nasal Cannula 12/20/23 19:00 Nasal Cannula 12/20/23 18:25 Nasal Cannula 12/20/23 18:25 76 12/20/23 18:24 77 12/20/23 17:00 Nasal Cannula 12/20/23 16:00 97 Nasal Cannula 12/20/23 16:00 98.1 F 95 H 20 141/89 H 97 Nasal Cannula 12/20/23 15:00 Nasal Cannula 12/20/23 12:37 Nasal Cannula 12/20/23 12:00 98.0 F 88 20 128/71 90 L Nasal Cannula 12/20/23 10:39 Nasal Cannula 12/20/23 09:00 Nasal Cannula O2 Flow Rate FiO2 12/21/23 07:52 5 12/21/23 05:10 12/21/23 05:10 12/21/23 05:10 6 12/21/23 04:00 6 12/21/23 06:44 5 12/21/23 04:49 6 12/21/23 02:48 2 12/21/23 01:00 2 12/21/23 00:00 2 12/21/23 00:00 3 12/20/23 23:38 12/20/23 23:37 12/20/23 23:00 2 12/20/23 21:00 3 12/20/23 20:00 2 12/20/23 19:59 12/20/23 19:00 2 12/20/23 18:25 2 28 12/20/23 18:25 12/20/23 18:24 12/20/23 17:00 2 12/20/23 16:00 2 12/20/23 16:00 12/20/23 15:00 2 12/20/23 12:37 2 12/20/23 12:00 12/20/23 10:39 2 12/20/23 09:00 2 Intake and Output 12/20/23 12/21/23 12/21/23 23:59 07:59 15:59 Intake Total 0 / 1350 780 / 780 Output Total 0 / 750 0 / 0 Balance 0 / 600 780 / 780 Intake: Intake, Oral Amount 0 / 930 480 / 480 Intake, Total IV Amount 300 / 300 Azithromycin 500 mg In 0.9 % 250 / 250 Sodium Chloride 250 ml @ 250 mls/hr IV Q24H [facility] Rx#:[id number] Pipercillin/Tazo 3.375 gm In 0. 50 / 50 9 % Sodium Chloride 50 ml @ 100 mls/hr IV Q6H [facility] Rx#:[id number] Output: Output, Urine Amount 0 / 750 0 / 0 Other: Number of Unmeasured Voids 1 Weight 92.17 kg Patient Weight 12/21/23 23:59 Weight 92.17 kg Laboratory Results - last 24 hr 12/20/23 08:26: WBC 15.2 H, RBC 3.82 L, Hgb 12.0 L, Hct 34.3 L, MCV 89.7, MCH 31.4 H, MCHC 34.9, RDW 13.1, Plt Count 566 H, MPV 8.1, Neut % (Auto) 71.2, Lymph % (Auto) 22.0, [place] % (Auto) 5.0, Eos % (Auto) 1.7, Baso % (Auto) 0.2, Neut # (Auto) 10.8 H, Lymph # (Auto) 3.3, [place] # (Auto) 0.8, Eos # (Auto) 0.3, Baso # (Auto) 0.0, Total Counted 100, Neutrophils % (Manual) 76, Lymphocytes % (Manual) 19, Monocytes % (Manual) 3, Eosinophils % (Manual) 2, Platelet Estimate Slight increase, RBC Morphology Normal, Sodium 139, Potassium 3.3 L, Chloride 105, Carbon Dioxide 30, Anion Gap 7.3, BUN 3 L, Creatinine 0.70, Estimated Creat Clear 187, Estimated GFR 126, Est GFR ( Amer) 153, Glucose 98, Calcium 8.3 L, Total Bilirubin 0.9, AST 34, ALT 27, Alkaline Phosphatase 114, Total Protein 7.1, Albumin 3.4 L, Globulin 3.7 H, Albumin/Globulin Ratio 0.9 L 12/21/23 07:00: WBC 14.4 H, RBC 3.60 L, Hgb 11.0 L, Hct 32.3 L, MCV 89.7, MCH 30.6, MCHC 34.1, RDW 13.2, Plt Count 629 H, MPV 8.1, Neut % (Auto) 76.0, Lymph % (Auto) 18.2, [place] % (Auto) 3.7, Eos % (Auto) 1.9, Baso % (Auto) 0.2, Neut # (Auto) 10.9 H, Lymph # (Auto) 2.6, [place] # (Auto) 0.5, Eos # (Auto) 0.3, Baso # (Auto) 0.0, Sodium 138, Potassium 3.7, Chloride 110 H, Carbon Dioxide 29, Anion Gap 2.7 L, BUN 3 L, Creatinine 0.70, Estimated Creat Clear 187, Estimated GFR 126, Est GFR ( Amer) 153, Glucose 99, Calcium 8.1 L, Magnesium 1.9, Total Bilirubin 0.8, AST 34, ALT 23, Alkaline Phosphatase 96, Total Protein 6.6, Albumin 3.0 L D, Globulin 3.6 H, Albumin/Globulin Ratio 0.8 L I & O for Labs for Last 24 Hours: Intake & Output 12/18/23 12/19/23 12/20/23 12/21/23 23:59 23:59 23:59 23:59 Intake Total 1150 / 1400 1270 / 1390 570 / 1350 780 / 780 Output Total 920 / 920 750 / 750 0 / 0 Balance 1150 / 1400 350 / 470 -180 / 600 780 / 780 Weight 92.17 kg 92.17 kg 92.17 kg 92.17 kg Microbiology Reports for the Last 24 Hours: Microbiology 12/19/23 13:50 Sputum - Expectorated Sputum Gram Stain - Final 12/19/23 11:05 Nose - Nasal MRSA Culture - Final The patient's infection will respond to the chosen ABx?: Yes Is the patient receiving the right drug, dose, and route?: Yes Could a more targeted ABx be ordered?: No (BLOOD AND SPUTUM CX PENDING)
[2023-12-21] MEDS: ATORVASTATIN 20MG TABLET 20 MG PO (08:55)
[2023-12-21] MEDS: GABAPENTIN 800MG TABLET 800 MG PO ×3 (08:55→21:17)
[2023-12-21] MEDS: HEPARIN SODIUM 5,000 UNIT/ML VIAL 5000 UNIT SQ ×2 (08:56→21:17)
[2023-12-21] MEDS: BUPRENORPHINE/NALOXONE 8MG/2MG ODT 1 EACH SL ×2 (09:00→21:17)
[2023-12-21] MEDS: POTASSIUM CHLORIDE 20MEQ TAB 40 MEQ PO ×2 (09:01→21:17)
--- NOTE | 2023-12-21 09:57 | EXP.PULM.PN ---
Subjective *Date: 12/21/23 *Time: 12:14 Interval history: No acute respiratory events overnight. Patient admits continued improvement in his respiratory symptoms. Pulmonology Exam Inpatient Vital signs and Labs for Last 24 Hours: Temp Pulse Resp BP Pulse Ox O2 Del Method O2 Flow Rate 98.4 F 85 21 146/90 H 97 Nasal Cannula 3 12/21/23 08:00 12/21/23 08:00 12/21/23 08:00 12/21/23 08:00 12/21/23 08:00 12/21/23 08:00 12/21/23 08:00 FiO2 28 12/20/23 18:25 Laboratory Results - last 24 hr 12/21/23 07:00: WBC 14.4 H, RBC 3.60 L, Hgb 11.0 L, Hct 32.3 L, MCV 89.7, MCH 30.6, MCHC 34.1, RDW 13.2, Plt Count 629 H, MPV 8.1, Neut % (Auto) 76.0, Lymph % (Auto) 18.2, [place] % (Auto) 3.7, Eos % (Auto) 1.9, Baso % (Auto) 0.2, Neut # (Auto) 10.9 H, Lymph # (Auto) 2.6, [place] # (Auto) 0.5, Eos # (Auto) 0.3, Baso # (Auto) 0.0, Sodium 138, Potassium 3.7, Chloride 110 H, Carbon Dioxide 29, Anion Gap 2.7 L, BUN 3 L, Creatinine 0.70, Estimated Creat Clear 187, Estimated GFR 126, Est GFR ( Amer) 153, Glucose 99, Calcium 8.1 L, Magnesium 1.9, Total Bilirubin 0.8, AST 34, ALT 23, Alkaline Phosphatase 96, Total Protein 6.6, Albumin 3.0 L D, Globulin 3.6 H, Albumin/Globulin Ratio 0.8 L I & O for Labs for Last 24 Hours: Intake & Output 12/18/23 12/19/23 12/20/23 12/21/23 23:59 23:59 23:59 23:59 Intake Total 1150 / 1400 1270 / 1390 570 / 1350 900 / 900 Output Total 920 / 920 750 / 750 0 / 0 Balance 1150 / 1400 350 / 470 -180 / 600 900 / 900 Weight 203 lb 3.2 oz 203 lb 3.2 oz 203 lb 3.201 oz 203 lb 3.201 oz Microbiology Reports for the Last 24 Hours: Microbiology 12/19/23 13:50 Sputum - Expectorated Sputum Gram Stain - Final 12/19/23 11:05 Nose - Nasal MRSA Culture - Final Constitutional: Present moderate distress Head: Present normocephalic and atraumatic ENT: Present normal exam, normal oropharynx and mucous membranes moist Neck: Present normal inspection and full ROM Respiratory: Present respiratory distress and rhonchi; Absent wheezes or able to speak in complete sentences Cardiac: Present S1/S2, Tachycardia and radial pulses present GI: Present soft and distention; Absent tenderness or guarding Skin: Present intact; Absent cyanosis or jaundice Neuro: Present alert, awake and oriented x 3 Extremities: Present normal inspection; Absent clubbing or cyanosis Psychiatric: Present normal affect and cooperative Assessment and Plan *Assessment and plan (1) Acute respiratory failure with hypoxia: Status: Acute Category: Medical Code(s): J96.01 - Acute respiratory failure with hypoxia (2) Pneumonia: Status: Acute Category: Medical Code(s): J18.9 - Pneumonia, unspecified organism Plan Mr. Jimenez is a 38-year-old male with reported history of dyslipidemia, hep C, tobacco abuse presented to ER with worsening respiratory distress cough and subjective fevers. Admits proximal worsening respiratory status along with cough chest pain and productive phlegm. Prior smoker. Leukocytosis upon admission. VBG hypoxic respiratory failure. CTA upon admission, no evidence of pulmonary embolism. Bilateral upper lobe predominant groundglass opacities left greater than right along with bilateral lower lobe micronodular airspace disease. No dense consolidation noted. The noted lower lobe opacity is not seen patient CT abdomen from August 2023. Influenza A H3 PCR resulted positive on 12/12/2023. COVID-19 and flu PCR resulted negative on this admission. Patient on this admission was initiated on vancomycin Zosyn and azithromycin. On initial examination examination patient appeared to be in severe respiratory distress, on 3 L saturating 93%. Interval update: No acute respiratory vents overnight. Slight improvement in leukocytosis. Afebrile. Hemodynamically stable. Nasal MRSA PCR negative. Sputum a positive gram cocci and rods along with yeast. Weaned to room air with saturations maintained at 90% and above Plan: Incentive spirometry Continue oxygen supplementation as needed to maintain O2 saturation 90% above Antibiotics can be weaned to levofloxacin 750 mg oral daily to complete a total of 7-day course Follow-up with final blood and sputum cultures. DuoNebs every 6 hours on a scheduled basis, can be discharged on albuterol every 6 hours on as-needed basis # Thank you for involving pulmonary in this patient care. Patient can be discharged from pulmonary standpoint will follow patient in pulmonary clinic in 5 days post discharge.
--- NOTE | 2023-12-21 13:05 | PC.NURSE ---
Pt's family stated on the datascope pt's o2 dropped to 83%. pt stated he felt soa and was very weak. family turned o2 back on 3 l. When nurse arrived in the room pt's o2 saturation was at 95%. O2 was decreased back to 2 l. Family stated she was very concerned with how weak pt is and was not comfortable with him going home today.
[2023-12-21] MEDS: levoFLOXacin 750 MG TABLET PO (14:33)
--- NOTE | 2023-12-21 15:10 | P.PN_ITS ---
Subjective *Date: 12/21/23 *Time: 17:09 Interval history: Showing gradual improvement. Still having productive cough though improving. Very anxious about going home with oxygen. Tolerating p.o. intake. No nausea or vomiting. Afebrile overnight. Medical Exam Vital signs and Labs for Last 24 Hours: Vital Signs Temp Pulse Pulse Resp BP Pulse Ox O2 Del Method 12/21/23 13:00 Nasal Cannula 12/21/23 12:00 97.9 F 74 20 140/85 93 L Nasal Cannula 12/21/23 10:58 Nasal Cannula 12/21/23 08:00 Nasal Cannula 12/21/23 08:00 98.4 F 85 21 146/90 H 97 Nasal Cannula 12/21/23 07:57 Nasal Cannula 12/21/23 07:52 Nasal Cannula 12/21/23 05:10 92 H 12/21/23 05:10 95 H 12/21/23 05:10 96 Nasal Cannula 12/21/23 04:00 98.8 F 93 H 18 147/86 H 97 Nasal Cannula 12/21/23 06:44 Nasal Cannula 12/21/23 04:49 Nasal Cannula 12/21/23 02:48 Nasal Cannula 12/21/23 01:00 Nasal Cannula 12/21/23 00:00 97 Nasal Cannula 12/21/23 00:00 98.6 F 102 H 20 161/90 H 97 Nasal Cannula 12/20/23 23:38 73 12/20/23 23:37 73 12/20/23 23:00 Nasal Cannula 12/20/23 21:00 Nasal Cannula 12/20/23 20:00 22 93 L Nasal Cannula 12/20/23 19:59 99.0 F 90 20 143/73 H 93 L Nasal Cannula 12/20/23 19:00 Nasal Cannula 12/20/23 18:25 Nasal Cannula 12/20/23 18:25 76 12/20/23 18:24 77 12/20/23 17:00 Nasal Cannula 12/20/23 16:00 97 Nasal Cannula 12/20/23 16:00 98.1 F 95 H 20 141/89 H 97 Nasal Cannula O2 Flow Rate FiO2 12/21/23 13:00 2 12/21/23 12:00 3 12/21/23 10:58 2 12/21/23 08:00 3 12/21/23 08:00 5 12/21/23 07:57 5 12/21/23 07:52 5 12/21/23 05:10 12/21/23 05:10 12/21/23 05:10 6 12/21/23 04:00 6 12/21/23 06:44 5 12/21/23 04:49 6 12/21/23 02:48 2 12/21/23 01:00 2 12/21/23 00:00 2 12/21/23 00:00 3 12/20/23 23:38 12/20/23 23:37 12/20/23 23:00 2 12/20/23 21:00 3 12/20/23 20:00 2 12/20/23 19:59 12/20/23 19:00 2 12/20/23 18:25 2 28 12/20/23 18:25 12/20/23 18:24 12/20/23 17:00 2 12/20/23 16:00 2 12/20/23 16:00 Intake and Output 12/20/23 12/21/23 12/21/23 23:59 07:59 15:59 Intake Total 0 / 1350 780 / 1140 360 / 1140 Output Total 0 / 750 0 / 0 0 / 0 Balance 0 / 600 780 / 1140 360 / 1140 Intake: Intake, Oral Amount 0 / 930 480 / 840 360 / 840 Intake, Total IV Amount 300 / 300 Azithromycin 500 mg In 0.9 % 250 / 250 Sodium Chloride 250 ml @ 250 mls/hr IV Q24H [facility] Rx#:[id number] Pipercillin/Tazo 3.375 gm In 0. 50 / 50 9 % Sodium Chloride 50 ml @ 100 mls/hr IV Q6H [facility] Rx#:[id number] Output: Output, Urine Amount 0 / 750 0 / 0 0 / 0 Other: Number of Unmeasured Voids 1 3 Number of Bowel Movements 1 Weight 92.17 kg Patient Weight 12/21/23 23:59 Weight 92.17 kg Laboratory Results - last 24 hr 12/21/23 07:00: WBC 14.4 H, RBC 3.60 L, Hgb 11.0 L, Hct 32.3 L, MCV 89.7, MCH 30.6, MCHC 34.1, RDW 13.2, Plt Count 629 H, MPV 8.1, Neut % (Auto) 76.0, Lymph % (Auto) 18.2, [place] % (Auto) 3.7, Eos % (Auto) 1.9, Baso % (Auto) 0.2, Neut # (Auto) 10.9 H, Lymph # (Auto) 2.6, [place] # (Auto) 0.5, Eos # (Auto) 0.3, Baso # (Auto) 0.0, Sodium 138, Potassium 3.7, Chloride 110 H, Carbon Dioxide 29, Anion Gap 2.7 L, BUN 3 L, Creatinine 0.70, Estimated Creat Clear 187, Estimated GFR 126, Est GFR ( Amer) 153, Glucose 99, Calcium 8.1 L, Magnesium 1.9, Total Bilirubin 0.8, AST 34, ALT 23, Alkaline Phosphatase 96, Total Protein 6.6, Albumin 3.0 L D, Globulin 3.6 H, Albumin/Globulin Ratio 0.8 L I & O for Labs for Last 24 Hours: Intake & Output 12/18/23 12/19/23 12/20/23 12/21/23 23:59 23:59 23:59 23:59 Intake Total 1150 / 1400 1270 / 1390 570 / 1350 1140 / 1140 Output Total 920 / 920 750 / 750 0 / 0 Balance 1150 / 1400 350 / 470 -180 / 600 1140 / 1140 Weight 92.17 kg 92.17 kg 92.17 kg 92.17 kg Microbiology Reports for the Last 24 Hours: Microbiology 12/19/23 13:50 Sputum - Expectorated Sputum Gram Stain - Final 12/19/23 11:05 Nose - Nasal MRSA Culture - Final Constitutional: Present no acute distress, obese, chronically ill appearing and cooperative Head: Present atraumatic and normocephalic ENT: Present normal exam Neck: Present normal inspection Respiratory: Present prolonged expiratory phase, rhonchi, crackles and normal respiratory effort; Absent wheezes Cardiac: Present Reg Rate and Rhythm GI: Present soft and normal bowel sounds; Absent distention or tenderness Extremities: Present normal inspection and full ROM Skin: Present intact; Absent erythema Comment:: Numerous tattoos Neuro: Present Grossly Intact, alert, awake, oriented x 3 and moves all extremities Comment:: Anxious Assessment and Plan *Assessment and plan (1) Sepsis: Status: Acute Category: Medical Code(s): A41.9 - Sepsis, unspecified organism (2) Pneumonia: Status: Acute Category: Medical Code(s): J18.9 - Pneumonia, unspecified organism (3) Hypokalemia: Status: Acute Category: Medical Code(s): E87.6 - Hypokalemia (4) Opioid use disorder: Status: Acute Category: Medical Code(s): F11.99 - Opioid use, unspecified with unspecified opioid-induced disorder (5) HLD (hyperlipidemia): Status: Acute Category: Medical Code(s): E78.5 - Hyperlipidemia, unspecified (6) Tobacco use: Status: Acute Category: Social Hx Code(s): Z72.0 - Tobacco use Plan 38 year old male presented to [facility] ED for c/o SOB, cough, and fever. PMHX of HLD, opioid use disorder, Hep C, and tobacco use. Pt was dx 1 week prior with influenza A. The pt's ED workup reveals elevated HR, increased RR, o2 use, leukocytosis of 19.5, potassium of 3.0, and his chest imaging reveals mediastinal lymphadenopathy, calcified granulomatous disease, and viral pneumonia. The pt received 1L of LR, azithromycin, zosyn, and vancomycin in the ED. Blood cultures are pending. His COVID/flu panel are negative. The ED PA consulted the hospitalist team for further medical management. Admitted to medicine for further management. Patient showing slow improvement. Still requiring 1 to 2 L oxygen at this time. Will transition to levofloxacin today. Anticipate discharge in the next day or 2. Problems addressed as follows: SEPSIS, resolving PNEUMONIA - Transition to Levaquin to complete total of 7 days of antibiotics. -Transition to albuterol inhaler every 6 hours scheduled so he can take inhaler home with him at discharge. - Continue supplemental oxygen as needed. Room air saturation of 83% today. Will need to go home on 2 L oxygen continuous at time of discharge tomorrow. - Pulmonology consulted and assisting with care. No change to regimen at this time. - Tylenol and toradol PRN for fever and pain - tessalon perles PRN for cough HYPOKALEMIA - monitor and replace, 3.7 today. Replacing with 40 mEq twice daily orally; magnesium 1.9. OPIOID USE DISORDER HLD resume atorvastatin buprenorphine-naloxone gabapentin, and quetiapine TOBACCO USE -nicotine patch PRN White cell count elevated at 14.4k, kidney function normal with creatinine 0.7. Repeat CBC, CMP, magnesium ordered for the morning. FULL CODE REGULAR DIET DVT: HEPARIN SQ
--- NOTE | 2023-12-21 17:35 | PC.NURSE ---
PT IS RESTING IN BED WITH FAMILY AT BEDSIDE. ALERT AND ORIENTED X4. O2 SATURATION HAS MAINTAINED 94-95% ON 1 L NC. PT STATES HE FEELS SOA WHEN HE GETS UP TO THE BATHROOM. LUNG SOUNDS DIMINISHED WITH SCATTERED WHEEZES AND BILATERAL CRACKLES (BASES). ABDOMEN SOFT/NON TENDER WITH ACTIVE BOWEL SOUNDS. NO SWELLING NOTED TO BLE. TOLERATED TAKING A SHOWER THIS SHIFT. EATING AND DRINKING WELL. WILL CONTINUE TO MONITOR.
[2023-12-21] MEDS: ALBUTEROL-HFA 90MCG/PUFF INHALER 8GM 2 PUFF IH (19:00)
[2023-12-22] VITALS: BP 146/74; PULSE 94; RESP 18; TEMP 37; O2SAT 92
[2023-12-22] MEDS: QUETIAPINE 100MG TABLET 100 MG PO (00:03)
[2023-12-22 04:00] VITALS: BP 154/79; PULSE 86; RESP 16; TEMP 37.3; O2SAT 94; BMI 29.5
--- NOTE | 2023-12-22 04:20 | PC.NURSE ---
Pt remains alert and oriented x4, currently on 1L of O2 intermittently. Pt continues to cough at times but denies need for cough medication. lungs remain diminished with fine crackles. Pt states that he feels much better and has rested well at times this shift. Pt O2 sat is currently 96% on 1L. Pt denies pain and other needs at this time. SO remains at bedside.
[2023-12-22 06:11] LABS: Basophils % 0.3 % (0.1-2.0); Eosinophils # 0.2 K/mm3 (0.0-0.4); Hematocrit 34.9 % (42.0-52.0); Hemoglobin 11.8 g/dL (14.1-18.0); Lymphocytes # 3.3 K/mm3 (0.7-4.5); Lymphocytes % 28.6 % (10-50); Mean Corpuscular HGB Conc 33.8 g/dL (31.8-35.4); Mean Corpuscular Hemoglobin 31.3 pg (27.0-31.2); Mean Corpuscular Volume 92.6 fl (80-94); Mean Platelet Volume 7.6 fl (7.4-10.4); Monocytes # 0.6 K/mm3 (0.1-1.0); Monocytes % 4.8 % (1.7-9.3); Neutrophils # 7.5 K/mm3 (1.8-7.8); Neutrophils % 64.2 % (37.0-80.0); Platelet Count 641 K/mm3 (142-424); Red Blood Count 3.77 M/mm3 (4.60-6.20); Red Cell Distribution Width 12.9 % (11.5-17.5); White Blood Count 11.6 K/mm3 (4.8-10.8)
[2023-12-22 06:17] LABS: Chloride 106 mmol/L (98-107); Potassium 4.5 mmoL/L (3.5-5.1); Sodium 138 mmol/L (136-145)
[2023-12-22 06:19] LABS: Alanine Aminotransferase 25 U/L (12-78); Blood Urea Nitrogen 3 mg/dl (9-20); Creatinine Clearance Estimated 160 mL/min (50-200); Estimated Glomerular Filt Rate 108 ml/min (>60); GFR (African American) 131 ML/MIN (>60)
[2023-12-22 06:20] LABS: Albumin Level 3.3 g/dl (3.5-5.0); Albumin/Globulin Ratio 0.9 (1.1-1.8); Alkaline Phosphatase 92 U/L (38-126); Anion Gap 7.5 mEq/L (5-15); Aspartate Amino Transferase 32 U/L (17-59); Bilirubin,Total 0.6 mg/dl (0.2-1.3); Calcium 8.6 mg/dl (8.4-10.2); Carbon Dioxide 29 mmol/L (22.0-30.0); Globulin 3.7 g/dL (1.3-3.2); Glucose 101 mg/dl (74-100)
[2023-12-22] MEDS: ALBUTEROL-HFA 90MCG/PUFF INHALER 8GM 2 PUFF IH (06:20)
[2023-12-22 06:21] LABS: Magnesium 1.9 mg/dl (1.6-2.3)
[2023-12-22 07:45] VITALS: BP 130/73; PULSE 70; RESP 21; TEMP 36.5; O2SAT 96
--- NOTE | 2023-12-22 07:45 | PC.NURSE ---
Pt is 91% on room air.
[2023-12-22] MEDS: ATORVASTATIN 20MG TABLET 20 MG PO (08:19)
[2023-12-22] MEDS: GABAPENTIN 800MG TABLET 800 MG PO (08:19)
[2023-12-22] MEDS: POTASSIUM CHLORIDE 20MEQ TAB 40 MEQ PO (08:19)
[2023-12-22] MEDS: guaiFENesin 600 MG TAB.ER.12H 1200 MG PO (08:20)
[2023-12-22] MEDS: BUPRENORPHINE/NALOXONE 8MG/2MG ODT 1 EACH SL (08:20)
[2023-12-22] MEDS: HEPARIN SODIUM 5,000 UNIT/ML VIAL 5000 UNIT SQ (08:20)
--- NOTE | 2023-12-22 09:41 | P.DS_ITS ---
General Admission date:: 12/18/23 Discharge date: 12/22/23 HPI HPI HPI: 38 year old male presented to [facility] ED for c/o SOB, cough, and fever. PMHX of HLD, opioid use disorder, Hep C, and tobacco use. Pt was dx 1 week prior with influenza A. The pt's ED workup reveals elevated HR, increased RR, o2 use, leukocytosis of 19.5, potassium of 3.0, and his chest imaging reveals mediastinal lymphadenopathy, calcified granulomatous disease, and viral pneumonia. The pt received 1L of LR, azithromycin, zosyn, and vancomycin in the ED. Blood cultures are pending. His COVID/flu panel are negative. The ED PA consulted the hospitalist team for further medical management. I admitted the pt to the medical surgical floor. Hospital Course Hospital Course Hospital Course: 38 year old male presented to [facility] ED for c/o SOB, cough, and fever. PMHX of HLD, opioid use disorder, Hep C, and tobacco use. Pt was dx 1 week prior with influenza A. The pt's ED workup reveals elevated HR, increased RR, o2 use, leukocytosis of 19.5, potassium of 3.0, and his chest imaging reveals mediastinal lymphadenopathy, calcified granulomatous disease, and viral pneumonia. The pt received 1L of LR, azithromycin, zosyn, and vancomycin in the ED. Blood cultures are pending. His COVID/flu panel are negative. The ED PA consulted the hospitalist team for further medical management. Admitted to medicine for further management. Patient is shown slow gradual improvement. Able to wean to room air by day of discharge. Transitioned to levofloxacin, will complete course of antibiotics orally. Stable to discharge home to continue to convalesce. Problems addressed as follows: SEPSIS, resolved PNEUMONIA -Initiated on broad-spectrum antibiotics given concern for pneumonia after flu. Given clinical improvement and negative sputum culture, transition to Levaquin to complete 7 days total of antibiotics. Oxygen weaned to room air by day of discharge. Room air sat of 91 to 92%. Continue albuterol inhaler at discharge, provided with spacer. Pulmonology assisted with care during admission. Plan for follow-up with pulm in the coming weeks. Continue Tessalon Perles at discharge for cough. Symptoms overall improving, stable for discharge home. HYPOKALEMIA -3 on day of admission. Improved with daily replacement. Magnesium normal. No need for supplementation at discharge. Potassium 4.5 on discharge. Recommend repeat labs in 1 to 2 weeks to monitor kidney function and electrolytes. OPIOID USE DISORDER HLD Continue home regimen with Lipitor, buprenorphine-naloxone, gabapentin, and quetiapine TOBACCO USE: nicotine patch during admission, discharged with patch White cell count normalized to 11.6. Kidney function electrolytes normal. Exam Data for Last 24 hours Vital signs and Labs for Last 24 Hours: Temp Pulse Resp BP Pulse Ox O2 Del Method O2 Flow Rate 98.4 F 85 21 146/90 H 97 Nasal Cannula 2 12/21/23 08:00 12/21/23 08:00 12/21/23 08:00 12/21/23 08:00 12/21/23 08:00 12/21/23 10:58 12/21/23 10:58 FiO2 28 12/20/23 18:25 Laboratory Results - last 24 hr 12/21/23 07:00: WBC 14.4 H, RBC 3.60 L, Hgb 11.0 L, Hct 32.3 L, MCV 89.7, MCH 30.6, MCHC 34.1, RDW 13.2, Plt Count 629 H, MPV 8.1, Neut % (Auto) 76.0, Lymph % (Auto) 18.2, [place] % (Auto) 3.7, Eos % (Auto) 1.9, Baso % (Auto) 0.2, Neut # (Auto) 10.9 H, Lymph # (Auto) 2.6, [place] # (Auto) 0.5, Eos # (Auto) 0.3, Baso # (Auto) 0.0, Sodium 138, Potassium 3.7, Chloride 110 H, Carbon Dioxide 29, Anion Gap 2.7 L, BUN 3 L, Creatinine 0.70, Estimated Creat Clear 187, Estimated GFR 126, Est GFR ( Amer) 153, Glucose 99, Calcium 8.1 L, Magnesium 1.9, Total Bilirubin 0.8, AST 34, ALT 23, Alkaline Phosphatase 96, Total Protein 6.6, Albumin 3.0 L D, Globulin 3.6 H, Albumin/Globulin Ratio 0.8 L I & O for Last 24 hours: Intake & Output 12/18/23 12/19/23 12/20/23 12/21/23 23:59 23:59 23:59 23:59 Intake Total 1150 / 1400 1270 / 1390 570 / 1350 900 / 900 Output Total 920 / 920 750 / 750 0 / 0 Balance 1150 / 1400 350 / 470 -180 / 600 900 / 900 Weight 92.17 kg 92.17 kg 92.17 kg 92.17 kg Microbiology Reports for the Last 24 Hours: Microbiology 12/19/23 13:50 Sputum - Expectorated Sputum Gram Stain - Final 12/19/23 11:05 Nose - Nasal MRSA Culture - Final Constitutional Constitutional: no acute distress, average body habitus and cooperative *Routine HEENT Exam Head: Present normocephalic Eye: Present EOMI and PERRL ENT: Present mucous membranes moist *Routine Neck Exam Neck: Present supple; Absent lymphadenopathy *Routine Respiratory Exam Respiratory: Present rhonchi, crackles (Improved, bases) and normal respiratory effort; Absent wheezes *Routine Cardiovascular Exam Cardiovascular: Present RRR *Routine Abdominal Exam Abdominal: Present soft and normoactive bowel sounds; Absent tenderness *Routine Rectal Exam Patient deferred: visual exam *Routine Exam Patient deferred: penile exam *Routine Extremities Exam Extremities: Absent cyanosis, clubbing or edema *Routine Skin Exam Skin: Present warm; Absent rash Comments: Numerous tattoos *Routine Neurological Exam Neurological: Present alert and oriented X3 Results Data Completed and Pending Labs on day of discharge: Labs from last 24 hours 12/21/23 07:00 WBC 14.4 H RBC 3.60 L Hgb 11.0 L Hct 32.3 L MCV 89.7 MCH 30.6 MCHC 34.1 RDW 13.2 Plt Count 629 H MPV 8.1 Neut % (Auto) 76.0 Lymph % (Auto) 18.2 [place] % (Auto) 3.7 Eos % (Auto) 1.9 Baso % (Auto) 0.2 Neut # (Auto) 10.9 H Lymph # (Auto) 2.6 [place] # (Auto) 0.5 Eos # (Auto) 0.3 Baso # (Auto) 0.0 Sodium 138 Potassium 3.7 Chloride 110 H Carbon Dioxide 29 Anion Gap 2.7 L BUN 3 L Creatinine 0.70 Estimated Creat Clear 187 Estimated GFR 126 Est GFR ( Amer) 153 Glucose 99 Calcium 8.1 L Magnesium 1.9 Total Bilirubin 0.8 AST 34 ALT 23 Alkaline Phosphatase 96 Total Protein 6.6 Albumin 3.0 L D Globulin 3.6 H Albumin/Globulin Ratio 0.8 L DS: Diagnosis Discharge Diagnosis (1) Acute respiratory failure with hypoxia: Status: Acute Code(s): J96.01 - Acute respiratory failure with hypoxia (2) Pneumonia: Status: Acute Code(s): J18.9 - Pneumonia, unspecified organism Meds Home Medications and Allergies Home Medications Medication Instructions Recorded Confirmed Type buprenorphine 8 mg-naloxone 2 mg 1 tab sublingual BID 02/27/21 12/18/23 History sublingual tablet gabapentin 800 mg tablet 800 mg PO TID #90 tabs 10/28/23 12/18/23 Rx atorvastatin 20 mg tablet 20 mg PO DAILY Cholesterol 12/19/23 12/19/23 History albuterol sulfate 90 mcg/actuation 2 puff inhalation Q6HP PRN 12/21/23 Rx aerosol inhaler (Ventolin HFA) Shortness Of Breath #0 grams quetiapine 100 mg tablet (Seroquel) 100 mg PO HS #90 tabs 12/21/23 Rx benzonatate 100 mg capsule 200 mg PO Q8HP PRN Cough 3 days 12/22/23 Rx #18 caps levofloxacin 750 mg tablet 750 mg PO 1100 3 days #3 tabs 12/22/23 Rx nicotine 21 mg/24 hr daily 21 mg transdermal DAILYP PRN 12/22/23 Rx transdermal patch Nicotine Cravings 28 days #28 ea New Prescriptions to Start Prescriptions: benzoMaicol Brown levofloxacin Latonya,Maicol nicotine Maicol Hanks Allergies Allergy/AdvReac Type Severity Reaction Status Date / Time No Known Allergies Allergy Verified 09/21/23 13:21 Discharge Plan Disposition Patient Disposition: Home, Self-Care Condition: Fair Discharge Order Discharge Orders: Discharge Order (Routine); Ordered 12/22/23 Ordered By: Maicol Hanks Follow up Plan Follow up with: Jordan Borrero DO [Primary Care Provider] - 12/28/23 10:15 am Leydi Sylvester MD [Physician] - 12/28/23 1:00 pm Prescriptions/Medication Reconciliation: New albuterol sulfate [Ventolin HFA] 90 mcg/actuation Hfa Aerosol Inhaler 2 puff inhalation Q6HP PRN (Reason: Shortness Of Breath) Qty: 0 0RF benzonatate 100 mg Capsule 200 mg PO Q8HP PRN (Reason: Cough) 3 Days Qty: 18 0RF nicotine 21 mg/24 hr Patch 24 Hour 21 mg transdermal DAILYP PRN (Reason: Nicotine Cravings) 28 Days Qty: 28 2RF levofloxacin 750 mg Tablet 750 mg PO 1100 3 Days Qty: 3 0RF Continued buprenorphine-naloxone 8-2 mg tablet, sublingual 1 tab SUBLINGUAL BID gabapentin 800 mg tablet 800 mg PO TID Qty: 90 1RF quetiapine [Seroquel] 100 mg tablet 100 mg PO HS Qty: 90 2RF atorvastatin 20 mg tablet 20 mg PO DAILY Patient Comments: TAKE 1 TABLET BY MOUTH ONCE DAILY FOR ELEVATED CHOLESTEROL Problem Reconciliation Problems Reviewed?: Yes Patient Discharge Instructions ACTIVITY: Continue current activity DIET: continue same diet Patient Instructions: DI for Pneumonia -- Adult, DI for Hypokalemia, Per ipherally Inserted Central Catheter Infections, DI for Sepsis -- Adult, Smoking Resource: your quit plan Providers Primary Care Provider: Jordan Borrero Admit Provider: Naseem Valles Attending Provider: Isidoro Mondragon
--- NOTE | 2023-12-22 10:09 | EXP.PULM.PN ---
Subjective *Date: 12/22/23 *Time: 10:09 Pulmonology Exam Inpatient Vital signs and Labs for Last 24 Hours: Temp Pulse Resp BP Pulse Ox O2 Del Method O2 Flow Rate 97.7 F 70 21 130/73 96 Room Air 1 12/22/23 07:45 12/22/23 07:45 12/22/23 07:45 12/22/23 07:45 12/22/23 07:45 12/22/23 08:00 12/22/23 07:45 FiO2 28 12/20/23 18:25 Laboratory Results - last 24 hr 12/22/23 05:33: WBC 11.6 H, RBC 3.77 L, Hgb 11.8 L, Hct 34.9 L, MCV 92.6, MCH 31.3 H, MCHC 33.8, RDW 12.9, Plt Count 641 H, MPV 7.6, Neut % (Auto) 64.2, Lymph % (Auto) 28.6, [place] % (Auto) 4.8, Eos % (Auto) 2.0, Baso % (Auto) 0.3, Neut # (Auto) 7.5, Lymph # (Auto) 3.3, [place] # (Auto) 0.6, Eos # (Auto) 0.2, Baso # (Auto) 0.0, Sodium 138, Potassium 4.5 D, Chloride 106, Carbon Dioxide 29, Anion Gap 7.5, BUN 3 L, Creatinine 0.80, Estimated Creat Clear 160, Estimated GFR 108, Est GFR ( Amer) 131, Glucose 101 H, Calcium 8.6, Magnesium 1.9, Total Bilirubin 0.6, AST 32, ALT 25, Alkaline Phosphatase 92, Total Protein 7.0, Albumin 3.3 L, Globulin 3.7 H, Albumin/Globulin Ratio 0.9 L I & O for Labs for Last 24 Hours: Intake & Output 12/19/23 12/20/23 12/21/23 12/22/23 23:59 23:59 23:59 23:59 Intake Total 1270 / 1390 570 / 1350 1649 770 / 770 Output Total 920 / 920 750 / 750 0 / 300 300 / 300 Balance 350 / 470 -180 / 600 1650 / 1710 470 / 470 Weight 203 lb 3.2 oz 203 lb 3.201 oz 203 lb 3.201 oz 199 lb Microbiology Reports for the Last 24 Hours: Microbiology 12/19/23 13:50 Sputum - Expectorated Sputum Gram Stain - Final 12/19/23 13:50 Sputum - Expectorated Sputum Sputum Culture - Preliminary 12/18/23 19:45 Blood Blood Culture - Preliminary 12/18/23 19:45 Blood Blood Culture - Preliminary
--- NOTE | 2023-12-23 14:34 | CARE MANAGER ---
Spoke with the significant other who states the patient is concerned he is going to run out of his inhaler. Told them to look on the inhaler and it should tell how many puffs are left. They stated they could not find it. Spoke with pharmacist who states there are 200 puffs on the inhaler. Contacted the patient back. He is using it more than 2 puffs every 6 hours as needed. We discussed following the directions as prescribed and if needing it more frequently to contact PCP or go to [facility] to be seen. He states he is getting better. They are aware of appointments and have medications. ROSS Taylor
== END 2023-12-22 10:27 | disposition home or self-care (01) | DRG 871 ==
LOC: ER 19:25 → 2ND 20:47
PROVIDERS: Internal Medicine Adolescent Medicine; Physician Assistant; Admitting Provider Nurse Practitioner Critical Care Medicine; Emergency Provider Student in an Organized Health Care Education/Training Program; PCP Internal Medicine; Visit Provider Internal Medicine
DX: A41.9 Sepsis, unspecified organism (principal); J18.9 Pneumonia, unspecified organism; J96.01 Acute respiratory failure with hypoxia; Z87.891 Personal history of nicotine dependence; E78.5 Hyperlipidemia, unspecified; B18.2 Chronic viral hepatitis C; E87.6 Hypokalemia; F11.10 Opioid abuse, uncomplicated
CPT/HCPCS: 36410; 36415; 71045; 71275; 80048; 80053; 82803; 83605; 83735; 84145; 85007; 85025; 87040; 87070; 87081; 87205; 87430; 87636; 94640; 94760; 94761; 99291; J0456; J0574; J2543; J3370; Q9967

== ENCOUNTER 2024-12-05 09:44 | Outpatient (CLI) | payer MEDICAID, SELFPAY ==
[2024-12-05 18:14] LABS: Basophils # 0.1 K/mm3 (0-0.2); Basophils % 0.7 % (0.1-2.0); Eosinophils # 0.3 K/mm3 (0.0-0.4); Eosinophils % 4.1 % (0.1-12.0); Hematocrit 39.2 % (42.0-52.0); Hemoglobin 13.3 g/dL (14.1-18.0); Lymphocytes # 3.1 K/mm3 (0.7-4.5); Lymphocytes % 42.3 % (10-50); Mean Corpuscular HGB Conc 33.9 g/dL (31.8-35.4); Mean Corpuscular Hemoglobin 30.1 pg (27.0-31.2); Mean Corpuscular Volume 88.7 fl (80-94); Mean Platelet Volume 10.5 fl (7.4-10.4); Monocytes # 0.5 K/mm3 (0.1-1.0); Monocytes % 6.2 % (1.7-9.3); Neutrophils # 3.5 K/mm3 (1.8-7.8); Neutrophils % 46.6 % (37.0-80.0); Platelet Count 266 K/mm3 (142-424); Red Blood Count 4.42 M/mm3 (4.60-6.20); Red Cell Distribution Width 12.2 % (11.5-17.5); White Blood Count 7.4 K/mm3 (4.8-10.8)
[2024-12-05 19:27] LABS: Albumin Level 5.2 g/dl (3.5-5.0); Chloride 101 mmol/L (98-107); Sodium 140 mmol/L (136-145)
[2024-12-05 19:28] LABS: Potassium 4.6 mmoL/L (3.5-5.1)
[2024-12-05 19:30] LABS: Alanine Aminotransferase 22 U/L (12-78); Albumin/Globulin Ratio 2.7 (1.1-1.8); Alkaline Phosphatase 45 U/L (38-126); Anion Gap 13.6 mEq/L (5-15); Aspartate Amino Transferase 45 U/L (17-59); Bilirubin,Total 0.3 mg/dl (0.2-1.3); Blood Urea Nitrogen 9 mg/dl (9-20); Carbon Dioxide 30 mmol/L (22.0-30.0); Cholesterol 213 mg/dl (140-200); Estimated Glomerular Filt Rate 126 ml/min (>60); GFR (African American) 152 ML/MIN (>60); Globulin 1.9 g/dL (1.3-3.2); Total Protein,Serum 7.1 g/dl (6.3-8.2); Triglycerides 244 mg/dl (30-150); VLDL Cholesterol 49 mg/dL (0-40)
[2024-12-05 19:31] LABS: Chol/HDL Ratio 6.3 (1-3.5); Glucose 80 mg/dl (74-100); HDL Cholesterol 34 mg/dl (40-60)
[2024-12-05 19:42] LABS: Direct LDL Cholesterol 125.75 mg/dL (100-129)
[2024-12-05 19:54] LABS: 25-OH Vitamin D, Total 25.8 ng/mL (30-100)
[2024-12-05 20:00] LABS: Thyroid Stimulating Hormone 3.09 uIU/mL (0.465-4.68)
== END 2024-12-05 23:59 | disposition home or self-care (01) ==
LOC: LAB.DROPOF 12-07 09:45
PROVIDERS: PCP Family Medicine; Visit Provider Family Medicine
DX: E78.5 Hyperlipidemia, unspecified (principal); Z00.00 Encounter for general adult medical examination without abnormal findings
CPT/HCPCS: 80053; 80061; 82306; 84443; 85025

== ENCOUNTER 2024-12-25 17:16 | Outpatient (CLI) | payer MEDICAID, SELFPAY ==
[2024-12-25 17:58] LABS: Basophils # 0.1 K/mm3 (0-0.2); Basophils % 0.5 % (0.1-2.0); Eosinophils # 0.3 K/mm3 (0.0-0.4); Eosinophils % 2.5 % (0.1-12.0); Hematocrit 38.7 % (42.0-52.0); Hemoglobin 13.5 g/dL (14.1-18.0); Lymphocytes # 4.1 K/mm3 (0.7-4.5); Lymphocytes % 33.9 % (10-50); Mean Corpuscular HGB Conc 34.9 g/dL (31.8-35.4); Mean Corpuscular Hemoglobin 30.1 pg (27.0-31.2); Mean Corpuscular Volume 86.4 fl (80-94); Mean Platelet Volume 9.5 fl (7.4-10.4); Monocytes # 0.6 K/mm3 (0.1-1.0); Monocytes % 5.3 % (1.7-9.3); Neutrophils # 6.9 K/mm3 (1.8-7.8); Neutrophils % 57.6 % (37.0-80.0); Platelet Count 286 K/mm3 (142-424); Red Blood Count 4.48 M/mm3 (4.60-6.20); Red Cell Distribution Width 11.9 % (11.5-17.5); White Blood Count 11.9 K/mm3 (4.8-10.8)
[2024-12-25 18:31] LABS: Anion Gap 10.4 mEq/L (5-15); Blood Urea Nitrogen 9 mg/dl (9-20); Calcium 9.5 mg/dl (8.4-10.2); Carbon Dioxide 29 mmol/L (22.0-30.0); Chloride 102 mmol/L (98-107); Estimated Glomerular Filt Rate 108 ml/min (>60); GFR (African American) 130 ML/MIN (>60); Glucose 82 mg/dl (74-100); Potassium 4.4 mmoL/L (3.5-5.1); Sodium 137 mmol/L (136-145)
[2024-12-25 19:11] LABS: HIV Combo NEGATIVE (Negative)
== END 2024-12-25 23:59 | disposition home or self-care (01) ==
LOC: LAB 17:19
PROVIDERS: Visit Provider Anesthesiology
DX: F11.20 Opioid dependence, uncomplicated (principal); B18.2 Chronic viral hepatitis C
CPT/HCPCS: 36415; 80048; 85025; 87389; 87522

== ENCOUNTER 2025-03-19 14:25 | Outpatient (CLI) | payer MEDICAID, SELFPAY ==
[2025-03-19 14:44] LABS: MANUAL DIFFERENTIAL MANUAL DIFFERENTIAL (MANUAL DIFF)
[2025-03-19 15:24] LABS: Basophils # 0.1 K/mm3 (0-0.2); Basophils % 0.6 % (0.1-2.0); Eosinophils # 0.1 Kmm3 (0.0-0.4); Eosinophils % 1.8 % (0.1-12.0); Hematocrit 41.2 % (42.0-52.0); Hemoglobin 14.3 g/dL (14.1-18.0); Lymphocytes # 2.2 K/mm3 (0.7-4.5); Lymphocytes % 28.9 % (10-50); Mean Corpuscular HGB Conc 34.7 g/dL (31.8-35.4); Mean Corpuscular Hemoglobin 30.3 pg (27.0-31.2); Mean Corpuscular Volume 87.3 fl (80-94); Mean Platelet Volume 9.4 fl (7.4-10.4); Monocytes # 0.3 K/mm3 (0.1-1.0); Monocytes % 4.4 % (1.7-9.3); Neutrophils # 4.9 K/mm3 (1.8-7.8); Platelet Count 298 K/mm3 (142-424); Red Blood Count 4.72 M/mm3 (4.60-6.20); White Blood Count 7.7 K/mm3 (4.8-10.8)
[2025-03-19 15:31] LABS: Amphetamine/Metha Screen,Urine Negative ng/ml (<1000); Benzodiazepines Screen,Urine Negative ng/ml (<200)
[2025-03-19 15:32] LABS: Barbiturates Screen,Urine Negative ng/ml (<200); Cannabinoid Screen,Urine Positive ng/ml (<50)
[2025-03-19 15:33] LABS: Cocaine Screen,Urine Negative ng/ml (<300)
[2025-03-19 15:34] LABS: Methadone Screen,Urine Negative ng/ml (<300); Phencyclidine Screen,Urine Negative ng/ml (<25)
[2025-03-19 15:35] LABS: Opiate Screen,Urine Negative ng/ml (<300)
[2025-03-19 15:49] LABS: Alanine Aminotransferase 23 U/L (12-78); Albumin Level 5.4 g/dl (3.5-5.0); Albumin/Globulin Ratio 2.5 (1.1-1.8); Alkaline Phosphatase 51 U/L (38-126); Anion Gap 12.3 mEq/L (5-15); Aspartate Amino Transferase 40 U/L (17-59); Bilirubin,Total 0.7 mg/dl (0.2-1.3); Blood Urea Nitrogen 8 mg/dl (9-20); Calcium 9.6 mg/dl (8.4-10.2); Carbon Dioxide 22 mmol/L (22.0-30.0); Chloride 107 mmol/L (98-107); Chol/HDL Ratio 7.1 (1-3.5); Cholesterol 285 mg/dl (140-200); Estimated Glomerular Filt Rate 126 ml/min (>60); GFR (African American) 152 ML/MIN (>60); Globulin 2.2 g/dL (1.3-3.2); Glucose 92 mg/dl (74-100); HDL Cholesterol 40 mg/dl (40-60); Potassium 4.3 mmoL/L (3.5-5.1); Sodium 137 mmol/L (136-145); Total Protein,Serum 7.6 g/dl (6.3-8.2); Triglycerides 140 mg/dl (30-150); VLDL Cholesterol 28 mg/dL (0-40)
[2025-03-19 16:02] LABS: Direct LDL Cholesterol 209.11 mg/dL (100-129)
[2025-03-19 16:21] LABS: Thyroid Stimulating Hormone 2.72 uIU/mL (0.465-4.68)
[2025-03-19 16:25] LABS: Hemoglobin A1C 5.3 % (4.0-6.0)
[2025-03-19 16:30] LABS: HIV Combo NEGATIVE (Negative)
[2025-03-19 16:37] LABS: Hepatitis C Ab Qual. W/ RFX REACTIVE (Negative)
[2025-03-19 16:40] LABS: Vitamin B12 867 pg/mL (239-931)
[2025-03-19 16:50] LABS: Lymphocytes % 31 % (10-50); Monocytes % 4 % (2-9); Neutrophils % 65 % (42-76); Total Cells Counted 100
[2025-03-19 16:51] LABS: Platelet Estimate Normal; RBC Morphology Normal
== END 2025-03-19 23:59 | disposition home or self-care (01) ==
LOC: LAB 14:26
PROVIDERS: PCP Internal Medicine Addiction Medicine; Visit Provider Internal Medicine Addiction Medicine
DX: F11.20 Opioid dependence, uncomplicated (principal); G62.9 Polyneuropathy, unspecified; G25.81 Restless legs syndrome; E78.00 Pure hypercholesterolemia, unspecified; R53.83 Other fatigue; Z51.81 Encounter for therapeutic drug level monitoring
CPT/HCPCS: 36415; 80053; 80061; 80307; 82607; 83036; 84443; 85007; 85014; 85018; 85048; 85049; 86803; 87389; 87522

== ENCOUNTER 2025-09-10 15:03 | Outpatient (CLI) | payer MEDICAID, SELFPAY ==
[2025-09-10 16:25] LABS: Amphetamine/Metha Screen,Urine Negative ng/ml (<1000); Barbiturates Screen,Urine Negative ng/ml (<200)
[2025-09-10 16:26] LABS: Benzodiazepines Screen,Urine Negative ng/ml (<200)
[2025-09-10 16:28] LABS: Methadone Screen,Urine Negative ng/ml (<300); Opiate Screen,Urine Negative ng/ml (<300)
[2025-09-10 16:29] LABS: Phencyclidine Screen,Urine Negative ng/ml (<25)
== END 2025-09-10 23:59 | disposition home or self-care (01) ==
LOC: LAB 15:04
PROVIDERS: PCP Internal Medicine Addiction Medicine; Visit Provider Internal Medicine Addiction Medicine
DX: Z51.81 Encounter for therapeutic drug level monitoring (principal)
CPT/HCPCS: 80307